=== PATIENT | male | born 1975 ===

== ENCOUNTER 2018-08-03 11:47 | Inpatient (IN) | payer MEDICAID, OTHER ==
[2018-08-03 12:38] LABS: BASO % 0.7 % (0.0-2.0); EOS # 0.1 K/uL (0.0-0.7); EOS % 0.8 % (0.0-4.0); HEMOGLOBIN 13.8 g/dL (12.0-18.0); LYMPH # 1.1 K/uL (1.0-4.3); LYMPH % 15.3 % (20.0-40.0); MEAN CELL VOLUME 98.8 fL (80.0-94.0); MEAN CORPUSCULAR HEMOGLOBIN 32.7 pg (27.0-31.0); MEAN CORPUSCULAR HGB CONC 33.1 g/dL (33.0-37.0); MEAN PLATELET VOLUME 7.5 fL (7.2-11.7); MONO # 0.5 K/uL (0.0-0.8); NEUT # 5.2 K/uL (1.8-7.0); NEUT % 75.2 % (50.0-75.0); NRBC % 0.1 % (0.0-2.0); RBC 4.21 Mil/uL (4.40-5.90); RED CELL DISTRIBUTION WIDTH 14.1 % (11.5-14.5); WHITE BLOOD COUNT 6.9 K/uL (4.8-10.8)
--- NOTE | 2018-08-03 12:44 | C.PDOC ---
History Of Present Illness 42 y/o male, with PMHx of CHF, asthma, COPD, HTN, presents to ED complaining of SOB for the past several months, worsening for the last few weeks. Patient also complains of intermittent palpitations and an episode of chest pressure this morning that was nonradiating. Patient states he took aspirin 325 mg and the pain improved. He also states that he has not been taking his medications for 3 months now because he lost his insurance. He is supposed to take lisinopril 10 mg, carvedilol 25 mg, and lasix 40 mg. Patient denies cough, fever, worsening leg edema, abdominal pain, nausea, vomiting, diarrhea, dysuria. Time Seen by Provider: 08/03/18 12:06 Chief Complaint (Nursing): Palpitations History Per: Patient History/Exam Limitations: no limitations Onset/Duration Of Symptoms: Days Current Symptoms Are (Timing): Still Present Past Medical History Reviewed: Historical Data, Nursing Documentation, Vital Signs Vital Signs: Last Vital Signs Temp 98.3 F 08/03/18 11:57 Pulse 120 H 08/03/18 11:57 Resp 24 08/03/18 11:57 BP 173/106 H 08/03/18 11:57 Pulse Ox 98 08/03/18 11:57 - Medical History PMH: Asthma, CHF, COPD, HTN Family History: States: No Known Family Hx - Social History Hx Alcohol Use: Yes Hx Substance Use: No - Immunization History Hx Tetanus Toxoid Vaccination: No Hx Influenza Vaccination: No Hx Pneumococcal Vaccination: No Review Of Systems Constitutional: Negative for: Fever, Chills Cardiovascular: Positive for: Palpitations, Other (Chest Pressure) Respiratory: Positive for: Shortness of Breath. Negative for: Cough Gastrointestinal: Negative for: Nausea, Vomiting, Abdominal Pain, Diarrhea Genitourinary: Negative for: Dysuria, Hematuria Skin: Negative for: Rash Physical Exam - Physical Exam Appears: Well, Non-toxic, No Acute Distress, Other (morbidly obese, speaking in full sentences) Skin: Warm, Dry, No Rash Head: Normacephalic Eye(s): bilateral: Normal Inspection Oral Mucosa: Moist Neck: Supple Cardiovascular: Rhythm Regular (tachycardic) Respiratory: Normal Breath Sounds, Rales (mild rales at bases bilaterally), No Rhonchi, No Wheezing Gastrointestinal/Abdominal: Normal Exam, Bowel Sounds, Soft, No Tenderness, Other (obese) Extremity: Other (+1 pitting edema B/L LEs) Pulses: Left Dorsalis Pedis: Normal, Right Dorsalis Pedis: Normal Neurological/Psych: Oriented x3 ED Course And Treatment - Laboratory Results Result Diagrams: 08/08/18 06:26 08/08/18 06:26 ECG: Interpreted By Me, Viewed By Me (sinus tachycardia 123bpm, left axis deviation, LVH, no acute ST/T wave changes) ECG Interpretation: Abnormal Rate From EC O2 Sat by Pulse Oximetry: 98 (RA) Pulse Ox Interpretation: Normal - Radiology CXR: Interpreted by Me, Viewed By Me CXR Interpretation: Yes: No Acute Disease. No: Infiltrates Progress Note: Blood work, EKG, chest x-ray ordered and reviewed. Patient given PO Carvedilol 25 mg PO, Lasix 40 mg IV, and Lisinopril 10 mg PO. - Physician Consult Information Physician Contacted: Abad Davalos Outcome Of Conversation: Discussed patient with hospitalist, agrees with obs telemetry for chest pain, r/o ACS, CHF exacerbation. Disposition - Disposition Disposition: HOSPITALIZED Disposition Time: 14:37 Condition: STABLE - Clinical Impression Clinical Impression: CHF exacerbation, Chest pain - Scribe Statement The provider has reviewed the documentation as recorded by the Raegan Rincon Provider Attestation: All medical record entries made by the Raegan were at my direction and personally dictated by me. I have reviewed the chart and agree that the record accurately reflects my personal performance of the history, physical exam, medical decision making, and the department course for this patient. I have also personally directed, reviewed, and agree with the discharge instructions and disposition. Decision To Admit - Pt Status Changed To: Hospital Disposition Of: Observation - . Bed Request Type: Telemetry Admitting Physician: Abad Davalos Patient Diagnosis: Chest pain, CHF exacerbation
[2018-08-03 12:46] LABS: INR 1.1; PROTHROMBIN TIME 12.5 SECONDS (9.7-12.2)
[2018-08-03 13:01] LABS: ALBUMIN 3.9 g/dL (3.5-5.0); ALT/SGPT 52 U/L (21-72); AST/SGOT 68 U/L (17-59); BLOOD UREA NITROGEN 9 mg/dL (9-20); CALCIUM 8.6 mg/dl (8.6-10.4); GFR NON-AFRICAN AMERICAN > 60
[2018-08-03 13:09] LABS: B-TYPE NATRIURETIC PEPTIDE 1660 pg/mL (0-450)
[2018-08-03] MEDS ORDERED: Potassium Chloride 20 mEq ER Tab PO STA (14:10)
[2018-08-03] MEDS ORDERED: Potassium Chloride 20 mEq ER Tab PO ONE (14:28)
--- NOTE | 2018-08-03 15:33 | RAD ---
Date of service: 08/03/2018 PROCEDURE: CHEST RADIOGRAPH, 1 VIEW HISTORY: SOB COMPARISON: None available. FINDINGS: LUNGS: No consolidation PLEURA: No pneumothorax or pleural fluid seen. CARDIOVASCULAR: No aortic atherosclerotic calcification present. Cardiomegaly. Probable top-normal pulmonary vasculature large body habitus noted. OSSEOUS STRUCTURES: Bilateral shoulder arthrosis. VISUALIZED UPPER ABDOMEN: Normal. OTHER FINDINGS: None. IMPRESSION: Cardiomegaly and top-normal pulmonary vasculature.
--- NOTE | 2018-08-03 16:07 | CP.PCM.HP ---
<AmeliaIta - Last Filed: 08/03/18 17:34> History of Present Illness - History of Present Illness History of Present Illness: Ita Cisneros PGY1 H&P for Dr. Carlos CC: Chest pressure and palpitations Patient is a 42yo male with PMH of CHF and asthma presenting to hospital with palpitations, shortness of breath, and chest pressure. He has been having palpitations intermittently every other day for the past 5 months as he has stopped taking his medications since then. He reports chest pressure at 10am this morning with shortness of breath as he was walking to work. He felt the pressure in the center of his chest, rating it 10/10. He took aspirin 325mg at home with no relief. He used his albuterol inhaler at home for the shortness of breath with minimal relief. He denies dizziness, loss of consciousness, chest pain, sweating, nausea, vomiting, diarrhea, numbness, tingling or swelling. He reports sleeping at home with multiple pillows due to comfort. He says he drinks a lot of water. He denies previous intubations, night time asthma attacks, or daily albuterol use. SxH: denies FamH: mom - alive, DM, cardiac disease, dad - alive and well SocH: 30 pack/year smoking history. drinks 1 pint of vodka every other day. denies current recreational drug use Meds: ASA 81mg PO daily, Ventolin 2 puffs INH PRN Allergies: NKDA PMD: none Present on Admission - Present on Admission Any Indicators Present on Admission: No Review of Systems - Constitutional Constitutional: absent: Chills, Fatigue, Fever, Headache - EENT Eyes: absent: Blurred Vision, Change in Vision Nose/Mouth/Throat: absent: Nasal Congestion, Nasal Discharge - Cardiovascular Cardiovascular: Palpitations. absent: Chest Pain, Pain Radiating to Arm/Neck/Jaw, Leg Edema, Lightheadedness Additional comments: chest pressure - Respiratory Respiratory: Dyspnea. absent: Cough - Gastrointestinal Gastrointestinal: absent: Abdominal Pain, Constipation, Diarrhea, Nausea, Vomiting - Genitourinary Genitourinary: absent: Dysuria, Urinary Frequency - Musculoskeletal Musculoskeletal: absent: Muscle Weakness - Integumentary Integumentary: absent: New Lesions, Swelling - Neurological Neurological: absent: Dizziness, Frequent Falls, Syncope, Weakness - Psychiatric Psychiatric: absent: Anxiety, Depression - Endocrine Endocrine: absent: Fatigue Past Patient History - Past Social History Smoking Status: Light Smoker < 10 Cigarettes Daily - CARDIAC Hx Congestive Heart Failure: Yes Hx Hypertension: Yes - PULMONARY Hx Asthma: Yes Hx Chronic Obstructive Pulmonary Disease (COPD): Yes - PSYCHIATRIC Hx Substance Use: No - SURGICAL HISTORY Hx Surgeries: Yes Hx Cardiac Catheterization: Yes - ANESTHESIA Hx Anesthesia: Yes Hx Anesthesia Reactions: No Meds Allergies/Adverse Reactions: Allergies Allergy/AdvReac Type Severity Reaction Status Date / Time No Known Allergies Allergy Verified 08/03/18 12:01 Physical Exam - Constitutional Appears: Well, No Acute Distress - Head Exam Head Exam: ATRAUMATIC, NORMOCEPHALIC - Eye Exam Eye Exam: EOMI, PERRL Pupil Exam: NORMAL ACCOMODATION - ENT Exam ENT Exam: Mucous Membranes Moist - Neck Exam Neck exam: Negative for: Lymphadenopathy, Tenderness Additional comments: JVD +hepatojugular reflex - Respiratory Exam Respiratory Exam: Decreased Breath Sounds, Rales, NORMAL BREATHING PATTERN. absent: Rhonchi, Wheezes - Cardiovascular Exam Cardiovascular Exam: REGULAR RHYTHM, +S1, +S2. absent: Gallop, Rubs, Systolic Murmur - GI/Abdominal Exam GI & Abdominal Exam: Normal Bowel Sounds, Soft. absent: Distended, Firm, Tenderness - Extremities Exam Extremities exam: Positive for: pedal pulses present. Negative for: pedal edema, tenderness - Back Exam Back exam: absent: muscle spasm, rash noted, tenderness - Neurological Exam Neurological exam: Alert, CN II-XII Intact, Oriented x3, Reflexes Normal - Expanded Neurological Exam Expanded Cerebellar Function: Finger to Nose: Normal Sensory exam: Lower Extremity 2 Point Discrimination: Normal Neuro motor strength exam: Left Upper Extremity: 5, Right Upper Extremity: 5, Left Lower Extremity: 5, Right Lower Extremity: 5 DTR: Brachioradialis Left: 2+, Brachioradialis Right: 2+, Patellar Left: 2+, Patellar Right: 2+ - Psychiatric Exam Psychiatric exam: Normal Affect, Normal Mood - Skin Skin Exam: Normal Color Results - Vital Signs Recent Vital Signs: Last Vital Signs Temp 98.4 F 08/03/18 15:16 Pulse 98 H 08/03/18 15:16 Resp 16 08/03/18 15:16 BP 123/89 02/28/19 15:16 Pulse Ox 96 08/03/18 15:16 - Labs Result Diagrams: 08/03/18 12:34 08/03/18 12:34 Labs: Laboratory Results - last 24 hr 08/03/18 08/03/18 08/03/18 12:34 12:34 12:34 WBC 6.9 RBC 4.21 L Hgb 13.8 Hct 41.6 MCV 98.8 H MCH 32.7 H MCHC 33.1 RDW 14.1 Plt Count 291 MPV 7.5 Neut % (Auto) 75.2 H Lymph % (Auto) 15.3 L [place] % (Auto) 8.0 Eos % (Auto) 0.8 Baso % (Auto) 0.7 Neut # (Auto) 5.2 Lymph # (Auto) 1.1 [place] # (Auto) 0.5 Eos # (Auto) 0.1 Baso # (Auto) 0.0 PT 12.5 H INR 1.1 APTT 32 Sodium 135 Potassium 3.2 L Chloride 103 Carbon Dioxide 25 Anion Gap 11 BUN 9 Creatinine 0.8 Est GFR ( Amer) > 60 Est GFR (Non-Af Amer) > 60 POC Glucose (mg/dL) Random Glucose 177 H Calcium 8.6 Total Bilirubin 0.7 AST 68 H ALT 52 Alkaline Phosphatase 61 Total Creatine Kinase 267 H CK-MB (Mass) 2.50 Troponin I < 0.0120 NT-Pro-B Natriuret Pep 1660 H Total Protein 7.7 Albumin 3.9 Globulin 3.8 Albumin/Globulin Ratio 1.0 08/03/18 13:00 WBC RBC Hgb Hct MCV MCH MCHC RDW Plt Count MPV Neut % (Auto) Lymph % (Auto) [place] % (Auto) Eos % (Auto) Baso % (Auto) Neut # (Auto) Lymph # (Auto) [place] # (Auto) Eos # (Auto) Baso # (Auto) PT INR APTT Sodium Potassium Chloride Carbon Dioxide Anion Gap BUN Creatinine Est GFR ( Amer) Est GFR (Non-Af Amer) POC Glucose (mg/dL) 139 H Random Glucose Calcium Total Bilirubin AST ALT Alkaline Phosphatase Total Creatine Kinase CK-MB (Mass) Troponin I NT-Pro-B Natriuret Pep Total Protein Albumin Globulin Albumin/Globulin Ratio Assessment & Plan - Assessment and Plan (Free Text) Assessment: 42 year old male with PMH CHF and asthma presenting with chest pressure and palpitations admitted for r/o ACS. Plan: Acute systolic CHF - EKG: tachycardia, left ventricular hypertrophy - BNP 1600 upon admission - ASA 325mg PO x1 taken - ASA 81mg PO daily - Nitroglycerin SL PRN chest pain - Coreg 25mg PO BID (hold SBP<100 or HR<60) - Lisinopril 20mg PO daily (hold SBP<100) - Lasix 40mg IV BID - Crestor 10mg PO HS - f/u lipid panel, TSH, HbA1c - f/u ROMIS and EKGs 6pm and 10pm - f/u rpt BNP - f/u UDS - ECHO ordered - I/Os - daily weights - calculate ASCVD score when lipids available - Cardiology consulted, Dr. Gupta - f/u recs Chest Pain r/o ACS improved - patient currently asymptomatic - EKG: tachycardia, left ventricular hypertrophy - troponin negative x1 - follow up remaining ROMIs and EKGs 6pm and 10pm - CXR: cardiomegaly - telemetry monitoring - CAMPBLEL score 3 correlating with 8% risk at 14 days of: all-cause mortality, new or recurrent UT, or severe recurrent ischemia requiring urgent revascularization. - ASA 325mg PO x1 taken - ASA 81mg PO daily - Nitroglycerin SL PRN chest pain Hyperglycemia - family hx of DM - f/u HbA1c, lipids - accuchecks ACHS - hypoglycemic protocol Hypokalemia - K+ 3.2 - given KCl 40meq in ED - f/u Mg and replete if necessary - follow up AM CMP HTN - BP 173/106 upon admission - given lasix 40 IV, coreg 25mg, lisinopril 10mg in ED - improved - Coreg 25mg PO BID (hold SBP<100 or HR<60) - Lisinopril 20mg PO daily (hold SBP<100) - Lasix 40mg IV BID - continue to monitor Asthma, mild intermittent - saturating well on room air - patient reports improved symptoms - duonebs 3ml INH q6h PRN shortness of breath Substance Abuse Disorder - history of tobacco use and heavy drinking - Nicotine patch TD daily - CIWA protocol - cessation counseling - f/u UDS, serum etoh PPX: DVT: heparin 5000u sc q8h GI: pepcid 20mg PO BID HHD, 1200ml fluid restriction Patient seen and case reviewed with Dr. Carlos <TerranceMerari V - Last Filed: 08/07/18 14:00> Results - Vital Signs Recent Vital Signs: Last Vital Signs Temp 97.5 F L 08/07/18 08:06 Pulse 91 H 08/07/18 12:21 Resp 20 08/07/18 08:06 BP 119/86 08/07/18 09:10 Pulse Ox 98 08/07/18 08:06 - Labs Result Diagrams: 08/07/18 09:09 08/07/18 09:09 Labs: Laboratory Results - last 24 hr 08/06/18 08/07/18 08/07/18 21:10 09:09 09:09 WBC 7.9 RBC 4.74 Hgb 15.7 Hct 46.8 MCV 98.6 H MCH 33.1 H MCHC 33.5 RDW 14.4 Plt Count 398 MPV 7.5 Neut % (Auto) 55.9 Lymph % (Auto) 27.8 [place] % (Auto) 14.1 H Eos % (Auto) 1.5 Baso % (Auto) 0.7 Neut # (Auto) 4.4 Lymph # (Auto) 2.2 [place] # (Auto) 1.1 H Eos # (Auto) 0.1 Baso # (Auto) 0.1 PT INR Sodium 137 Potassium 3.9 Chloride 100 Carbon Dioxide 29 Anion Gap 12 BUN 15 Creatinine 0.9 Est GFR ( Amer) > 60 Est GFR (Non-Af Amer) > 60 POC Glucose (mg/dL) 152 H Random Glucose 119 H D Calcium 8.9 Phosphorus 4.0 Magnesium 1.8 Total Bilirubin 0.4 AST 59 ALT 50 Alkaline Phosphatase 62 Total Protein 8.5 H Albumin 4.4 Globulin 4.1 H Albumin/Globulin Ratio 1.1 08/07/18 09:09 WBC RBC Hgb Hct MCV MCH MCHC RDW Plt Count MPV Neut % (Auto) Lymph % (Auto) [place] % (Auto) Eos % (Auto) Baso % (Auto) Neut # (Auto) Lymph # (Auto) [place] # (Auto) Eos # (Auto) Baso # (Auto) PT 12.7 H INR 1.2 Sodium Potassium Chloride Carbon Dioxide Anion Gap BUN Creatinine Est GFR ( Amer) Est GFR (Non-Af Amer) POC Glucose (mg/dL) Random Glucose Calcium Phosphorus Magnesium Total Bilirubin AST ALT Alkaline Phosphatase Total Protein Albumin Globulin Albumin/Globulin Ratio Attending/Attestation - Attestation I have personally seen and examined this patient.: Yes I have fully participated in the care of the patient.: Yes I have reviewed all pertinent clinical information: Yes Notes (Text): This is a late computer entry for August 03, 2018. Patient seen, examined, case discussed with medical asst. This is a 42-year-old male with a known history of congestive heart failure. Patient has been without medications for about 6 months secondary to lack of insurance. Patient reports chest pain with co-commitment shortness of breath. As well as dyspnea on exertion and using at least 2 pillows to help with sleep patient does not do a fluid restriction. Discussed case in detail with resident. Patient admitted for acute on chronic systolic heart failure chest pain as well. Cardiology consult Aspirin, beta-aníbal, diuresis, MONO or arm, statin Monitor daily weight Intake output Fluid restriction We have explained patient in great detail in regards to congestive heart failure management. We will continue to monitor on telemetry Echocardiogram
[2018-08-03] MEDS ORDERED: Albuterol-Ipratrop 3 mg / 0.5 (3 ml) UD INH PRN ×2 (16:36→17:26)
[2018-08-03] MEDS ORDERED: Dextrose 50% SYRINGE Inj (50 ml) IV PRN (17:24)
[2018-08-03] MEDS ORDERED: Glucagon Recombinant 1 mg Inj IM PRN (17:38)
[2018-08-03 17:39] LABS: HDL CHOLESTEROL 41 mg/dL (30-70)
[2018-08-03 17:50] LABS: LDL CHOLESTEROL 158 mg/dL (0-129)
[2018-08-03] MEDS: MethylPREDNISolone 40 mg Vial IVP SCH (17:50)
[2018-08-03 17:52] LABS: CK-MB 2.52 ng/mL (0.0-3.38)
[2018-08-03 22:30] LABS: BARBITURATES, UR NEGATIVE (NEGATIVE); BENZODIAZEPINES, UR NEGATIVE (NEGATIVE); OPIATES, UR NEGATIVE (NEGATIVE); PHENCYCLIDINE, UR NEGATIVE (NEGATIVE)
[2018-08-04 00:44] VITALS: RESP 20
[2018-08-04 01:37] LABS: CK-MB 2.13 ng/mL (0.0-3.38)
[2018-08-04 06:25] LABS: BASO % 0.3 % (0.0-2.0); HEMOGLOBIN 15.2 g/dL (12.0-18.0); LYMPH # 0.9 K/uL (1.0-4.3); LYMPH % 10.1 % (20.0-40.0); MEAN CELL VOLUME 98.4 fL (80.0-94.0); MEAN CORPUSCULAR HEMOGLOBIN 33.4 pg (27.0-31.0); MEAN PLATELET VOLUME 7.5 fL (7.2-11.7); MONO # 0.4 K/uL (0.0-0.8); MONO % 4.8 % (0.0-10.0); NEUT # 7.9 K/uL (1.8-7.0); NEUT % 84.8 % (50.0-75.0); RBC 4.56 Mil/uL (4.40-5.90); RED CELL DISTRIBUTION WIDTH 14.4 % (11.5-14.5); WHITE BLOOD COUNT 9.3 K/uL (4.8-10.8)
[2018-08-04 06:42] LABS: B-TYPE NATRIURETIC PEPTIDE 935 pg/mL (0-450)
[2018-08-04 06:45] LABS: ALBUMIN 4.5 g/dL (3.5-5.0); ALT/SGPT 49 U/L (21-72); AST/SGOT 46 U/L (17-59); BLOOD UREA NITROGEN 11 mg/dL (9-20); CALCIUM 9.4 mg/dl (8.6-10.4); GFR NON-AFRICAN AMERICAN > 60
--- NOTE | 2018-08-04 07:19 | CP.PCM.PN ---
<Pancho Galindo - Last Filed: 08/04/18 23:29> Subjective - Date & Time of Evaluation Date of Evaluation: 08/04/18 Time of Evaluation: 08:00 - Subjective Subjective: PGY-[address] Carlos service Patient is seen and examined at bedside. Patient reports improvement of shortness of breath, denies chest pain, or palpitations. Patient is eating well, no nausea, vomiting, diarrhea, constipation or urinary symptoms. Objective - Vital Signs/Intake and Output Vital Signs (last 24 hours): Temp Pulse Resp BP Pulse Ox 97.8 F 80 20 119/82 95 08/03/18 23:15 08/04/18 03:57 08/03/18 23:15 08/03/18 23:15 08/03/18 23:15 - Medications Medications: Current Medications Albuterol/Ipratropium (Duoneb 3 Mg/0.5 Mg (3 Ml) Ud) 3 ml INH Q6H PRN PRN Reason: Shortness of Breath Aspirin (Aspirin Chewable) 81 mg PO DAILY [facility] Carvedilol (Coreg) 25 mg PO BID [facility] Last Admin: 08/03/18 17:49 Dose: 25 mg Dextrose (Dextrose 50% Inj) 0 ml IV STAT PRN; Protocol PRN Reason: Hypoglycemia Protocol Dextrose (Glutose 15) 0 gm PO ONCE PRN; Protocol PRN Reason: Hypoglycemia Protocol Famotidine (Pepcid) 20 mg PO BID [facility] Last Admin: 08/03/18 17:50 Dose: 20 mg Furosemide (Lasix) 40 mg IVP BID [facility] Last Admin: 08/03/18 17:51 Dose: 40 mg Glucagon (Glucagen Diagnostic Kit) 0 mg IM STAT PRN; Protocol PRN Reason: Hypoglycemia Protocol Heparin Sodium (Porcine) (Heparin) 5,000 units SC Q8 [facility] Last Admin: 08/04/18 05:44 Dose: 5,000 units Dextrose (Dextrose 5% In Water 1000 Ml) 1,000 mls @ 0 mls/hr IV .Q0M PRN; Protocol PRN Reason: Hypoglycemia Protocol Lisinopril (Zestril) 20 mg PO DAILY [facility] Methylprednisolone (Solu-Medrol) 40 mg IVP DAILY [facility] Last Admin: 08/03/18 17:50 Dose: 40 mg Nicotine (Nicoderm Cq) 1 patch TD DAILY [facility] Last Admin: 08/03/18 19:09 Dose: 1 patch Nitroglycerin (Nitrostat Sl Tab) 0.4 mg SL Q5M PRN PRN Reason: Pain, severe (8-10) Pneumococcal Polyvalent Vaccine (Pneumovax 23 Vaccine) 0.5 ml IM .ONCE ONE Stop: 08/04/18 14:01 Rosuvastatin Calcium (Crestor) 10 mg PO HS [facility] Last Admin: 08/03/18 21:16 Dose: 10 mg - Labs Labs: 08/04/18 06:13 08/04/18 06:13 PT 12.5 SECONDS (9.7-12.2) H 08/03/18 12:34 INR 1.1 08/03/18 12:34 APTT 32 SECONDS (21-34) 08/03/18 12:34 - Constitutional Appears: Non-toxic, No Acute Distress - Head Exam Head Exam: ATRAUMATIC, NORMAL INSPECTION, NORMOCEPHALIC - Eye Exam Eye Exam: EOMI, Normal appearance - ENT Exam ENT Exam: Normal Exam - Neck Exam Neck Exam: Normal Inspection - Respiratory Exam Respiratory Exam: Clear to Ausculation Bilateral, NORMAL BREATHING PATTERN. absent: Rales, Rhonchi, Wheezes - Cardiovascular Exam Cardiovascular Exam: REGULAR RHYTHM, +S1, +S2 - GI/Abdominal Exam GI & Abdominal Exam: Soft, Normal Bowel Sounds - Extremities Exam Extremities Exam: Full ROM, Normal Inspection. absent: Pedal Edema, Tenderness - Back Exam Back Exam: NORMAL INSPECTION - Neurological Exam Neurological Exam: Alert, Awake, Oriented x3 - Psychiatric Exam Psychiatric exam: Normal Affect, Normal Mood - Skin Skin Exam: Dry, Intact, Normal Color, Warm Assessment and Plan - Assessment and Plan (Free Text) Assessment: 42 year old male with PMH CHF and asthma presenting with chest pressure and palpitations admitted for r/o ACS. Plan: Acute systolic CHF - EKG: tachycardia, left ventricular hypertrophy, t wave abnormalities - BNP 1600 upon admission - ASA 325mg PO x1 taken - ASA 81mg PO daily - Nitroglycerin SL PRN chest pain - Coreg 25mg PO BID (hold SBP<100 or HR<60) - Lisinopril 20mg PO daily (hold SBP<100) - continue duiresis with Lasix 40mg IV BID - Crestor changed from 10mg to 20mg PO HS - adjusted based on ASCVD score of 6.9 which recommends a moderate intensity statin - Lipid panel Triglycerides 158, cholesterol 202, LDL 158, HDL 41 - TSH 4.97 - ENRIKE negative x 3 - BNP from 1660 to 935 - will follow up BNP tomorrow, Mg and Phosp - UDS negative - ECHO ordered - pending official read - I/Os - daily weights - Cardiology consulted, Dr. Gupta - f/u recs Chest Pain r/o ACS improved - patient currently asymptomatic - EKG: tachycardia, left ventricular hypertrophy, t wave abnormalities - CXR: cardiomegaly - ENRIKE negative x 3 - telemetry monitoring - CAMPBELL score 3 correlating with 8% risk at 14 days of: all-cause mortality, new or recurrent MS, or severe recurrent ischemia requiring urgent kavin scularization. - ASA 325mg PO x1 taken - ASA 81mg PO daily - Nitroglycerin SL PRN chest pain Hyperglycemia - family hx of DM - HBA1C 5.8 - continue to monitor glucose levels - accuchecks ACHS - hypoglycemic protocol Hypokalemia, resolved - K+ 4.5 - f/u am labs continue to monitor - replete as needed HTN - BP 173/106 upon admission, normotensive at this time - given lasix 40 IV, coreg 25mg, lisinopril 10mg in ED - Coreg 25mg PO BID (hold SBP<100 or HR<60) - Lisinopril 20mg PO daily (hold SBP<100) - Lasix 40mg IV BID - continue to monitor Asthma, mild intermittent - saturating well on room air - patient reports improved symptoms - duonebs 3ml INH q6h PRN shortness of breath Substance Abuse Disorder - history of tobacco use and heavy drinking - Nicotine patch TD daily - CIWA protocol - cessation counseling - UDS etoh negative PPX: DVT: heparin 5000u sc q8h GI: pepcid 20mg PO BID HHD, 1200ml fluid restriction Plan discussed with Dr. Terrance Galindo, PGY-1 <Merari Carlos V - Last Filed: 08/07/18 14:03> Objective - Vital Signs/Intake and Output Vital Signs (last 24 hours): Temp Pulse Resp BP Pulse Ox 97.5 F L 91 H 20 119/86 98 08/07/18 08:06 08/07/18 12:21 08/07/18 08:06 08/07/18 09:10 08/07/18 08:06 Intake and Output: 08/07/18 08/07/18 06:59 18:59 Intake Total 1000 Balance 1000 - Medications Medications: Current Medications Albuterol/Ipratropium (Duoneb 3 Mg/0.5 Mg (3 Ml) Ud) 3 ml INH Q6H PRN PRN Reason: Shortness of Breath Aspirin (Aspirin Chewable) 81 mg PO DAILY [facility] Last Admin: 08/07/18 09:10 Dose: 81 mg Carvedilol (Coreg) 12.5 mg PO BID [facility] Last Admin: 08/07/18 09:09 Dose: 12.5 mg Dextrose (Dextrose 50% Inj) 0 ml IV STAT PRN; Protocol PRN Reason: Hypoglycemia Protocol Dextrose (Glutose 15) 0 gm PO ONCE PRN; Protocol PRN Reason: Hypoglycemia Protocol Enoxaparin Sodium (Lovenox) 100 mg SC Q12 [facility] Last Admin: 08/07/18 09:09 Dose: 100 mg Famotidine (Pepcid) 20 mg PO BID [facility] Last Admin: 08/07/18 09:09 Dose: 20 mg Furosemide (Lasix) 40 mg IVP BID [facility] Last Admin: 08/07/18 09:10 Dose: 40 mg Glucagon (Glucagen Diagnostic Kit) 0 mg IM STAT PRN; Protocol PRN Reason: Hypoglycemia Protocol Dextrose (Dextrose 5% In Water 1000 Ml) 1,000 mls @ 0 mls/hr IV .Q0M PRN; Protocol PRN Reason: Hypoglycemia Protocol Losartan Potassium (Cozaar) 50 mg PO DAILY [facility] Last Admin: 08/07/18 09:10 Dose: 50 mg Nicotine (Nicoderm Cq) 1 patch TD DAILY [facility] Last Admin: 08/07/18 09:09 Dose: 1 patch Nitroglycerin (Nitrostat Sl Tab) 0.4 mg SL Q5M PRN PRN Reason: Pain, severe (8-10) Rosuvastatin Calcium (Crestor) 20 mg PO HS [facility] Last Admin: 08/06/18 22:07 Dose: 20 mg Warfarin Sodium (Coumadin) 5 mg PO 1800 ONE Stop: 08/07/18 18:01 - Labs Labs: 08/07/18 09:09 08/07/18 09:09 PT 12.7 SECONDS (9.7-12.2) H 08/07/18 09:09 INR 1.2 08/07/18 09:09 APTT 32 SECONDS (21-34) 08/03/18 12:34 Attending/Attestation - Attestation I have personally seen and examined this patient.: Yes I have fully participated in the care of the patient.: Yes I have reviewed all pertinent clinical information, including history, physical exam and plan: Yes Notes (Text): This is a late computer entry for more August 04, 2018. Patient seen, examined, case discussed with medical doctor md. Patient reports shortness of breath is improving while on diuresis. Patient is complete echocardiogram Patient was seen by cardiology. Will continue management in regards to patient's clinical symptomatology secondary to systolic CHF.
[2018-08-04] MEDS: MethylPREDNISolone 40 mg Vial IVP SCH (09:18)
[2018-08-04] MEDS ORDERED: Enoxaparin 40 mg Syringe SC SCH (10:00)
[2018-08-04] MEDS ORDERED: Influenza Vaccine 60 mcg/0.5 mL SYR (4YR UP) IM ONE (13:10)
[2018-08-04] MEDS ORDERED: Pneumococcal 23-Valent Vaccine IM ONE (14:00)
[2018-08-04] MEDS: Enoxaparin 100 mg Syringe SC SCH (21:25)
--- NOTE | 2018-08-05 03:10 | CON ---
DATE: 08/04/2018 CARDIOLOGY CONSULTATION REASON FOR CONSULTATION: Shortness of breath. HISTORY OF PRESENTING ILLNESS: The patient is a 42-year-old, morbidly obese male, who has a history of cardiomyopathy. The patient is followed by swine nutritionist by name of at [facility]. The patient recently underwent a cardiac catheterization at [facility], and there were no blockages, required no intervention, and no ICD was recommended. 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 SOCIAL HISTORY: The patient is a smoker. MEDICATIONS: Aspirin 81 mg once a day, Coreg 25 mg once a day, Crestor 10 mg once a day, heparin 5000 units every 8 hours, Lasix 20 mg intravenously twice a day, Nicoderm patch, Zestril 20 mg once a day, Solu-Medrol 40 mg intravenously daily. PHYSICAL EXAMINATION: GENERAL: The patient is a middle-aged male who does not appear to be in acute distress. VITAL SIGNS: Blood pressure 120/90, heart rate 63, temperature 97.4, respirations 20. HEENT: Normocephalic. CHEST: Clear. HEART: S1 and S2, regular and distant. ABDOMEN: Soft. EXTREMITIES: Trace leg edema. LABORATORY DATA: Chest x-ray revealed cardiomegaly, prominent bronchovascular markings. EKG revealed sinus rhythm at a rate of 90, left atrial enlargement, LVH, consider anterolateral ischemia. Urine drug screen is negative. SMA-7: Within normal limits except glucose of 148 and creatinine 0.7. Lipid profile is abnormal. Triglycerides 158, total cholesterol 202, LDL cholesterol is 158. All are elevated. TSH level is elevated to 4.97. Hemoglobin, hematocrit, white count, and platelet count are within normal limits. INR and PTT are within normal limits. Preliminary echocardiogram report revealed ejection fraction estimated at about 30% with [id number] pulmonary hypertension, and the right ventricle is also dilated and hypokinetic. No significant mitral insufficiency. Apical thrombus cannot be completely excluded. ASSESSMENT: 1. Exacerbation of congestive heart failure. 2. Morbid obesity. 3. Questionable apical thrombus. 4. Hyperlipidemia. RECOMMENDATIONS: Continue aspirin 81 mg once a day, Coreg 25 mg once a day, Crestor 10 mg once a day, Lasix 20 mg intravenously twice a day, Zestril 20 mg once a day. Discontinue subcutaneous heparin and start subcutaneous Lovenox. Start Crestor at 20 mg once a day. Boubacar Gupta MD
[2018-08-05 07:38] LABS: BASO # 0.1 K/uL (0.0-0.2); BASO % 0.7 % (0.0-2.0); EOS # 0.1 K/uL (0.0-0.7); EOS % 0.6 % (0.0-4.0); HEMOGLOBIN 14.8 g/dL (12.0-18.0); LYMPH # 3.2 K/uL (1.0-4.3); LYMPH % 26.4 % (20.0-40.0); MEAN CELL VOLUME 99.3 fL (80.0-94.0); MEAN CORPUSCULAR HEMOGLOBIN 33.3 pg (27.0-31.0); MEAN CORPUSCULAR HGB CONC 33.5 g/dL (33.0-37.0); MEAN PLATELET VOLUME 7.8 fL (7.2-11.7); MONO # 1.2 K/uL (0.0-0.8); NEUT # 7.6 K/uL (1.8-7.0); NEUT % 62.3 % (50.0-75.0); RBC 4.45 Mil/uL (4.40-5.90); RED CELL DISTRIBUTION WIDTH 14.6 % (11.5-14.5); WHITE BLOOD COUNT 12.2 K/uL (4.8-10.8)
[2018-08-05 08:04] LABS: ALBUMIN 4.1 g/dL (3.5-5.0); ALT/SGPT 47 U/L (21-72); AST/SGOT 51 U/L (17-59); BLOOD UREA NITROGEN 17 mg/dL (9-20); CALCIUM 8.9 mg/dl (8.6-10.4); GFR NON-AFRICAN AMERICAN > 60
--- NOTE | 2018-08-05 09:42 | RAD ---
Date of service: 08/05/2018 HISTORY: pleural effusion COMPARISON: No prior. FINDINGS: LUNGS: Mild bibasilar atelectasis. Slight increased central pulmonary vasculature PLEURA: Tiny bilateral effusions not completely excluded. No apparent pneumothorax. CARDIOVASCULAR: No aortic atherosclerotic calcification present. Cardiomegaly. OSSEOUS STRUCTURES: No significant abnormalities. VISUALIZED UPPER ABDOMEN: Normal. OTHER FINDINGS: None. IMPRESSION: Mild bibasilar atelectasis tiny bibasilar effusions not excluded. Slight increased central pulmonary vasculature
--- NOTE | 2018-08-05 10:26 | CP.PCM.PN ---
<Paula Abraham - Last Filed: 08/05/18 12:32> Subjective - Date & Time of Evaluation Date of Evaluation: 08/05/18 Time of Evaluation: 08:00 - Subjective Subjective: Medicine Progress Note: Patient was seen and examined at bedside. Patient states he feels better, but is short of breath with walking. Patient denies chest pain, palpitations, nausea, vomiting, diarrhea or constipation. Objective - Vital Signs/Intake and Output Vital Signs (last 24 hours): Temp Pulse Resp BP Pulse Ox 97.4 F L 89 20 118/83 97 08/05/18 07:00 08/05/18 08:53 08/05/18 07:00 08/05/18 09:44 08/05/18 07:00 Intake and Output: 08/05/18 08/05/18 06:59 18:59 Intake Total 500 Output Total 2600 Balance -2100 - Medications Medications: Current Medications Albuterol/Ipratropium (Duoneb 3 Mg/0.5 Mg (3 Ml) Ud) 3 ml INH Q6H PRN PRN Reason: Shortness of Breath Aspirin (Aspirin Chewable) 81 mg PO DAILY [facility] Last Admin: 08/05/18 09:44 Dose: 81 mg Carvedilol (Coreg) 25 mg PO BID [facility] Last Admin: 08/05/18 09:44 Dose: 25 mg Dextrose (Dextrose 50% Inj) 0 ml IV STAT PRN; Protocol PRN Reason: Hypoglycemia Protocol Dextrose (Glutose 15) 0 gm PO ONCE PRN; Protocol PRN Reason: Hypoglycemia Protocol Enoxaparin Sodium (Lovenox) 100 mg SC Q12 [facility] Last Admin: 08/04/18 21:25 Dose: 100 mg Famotidine (Pepcid) 20 mg PO BID [facility] Last Admin: 08/05/18 09:44 Dose: 20 mg Furosemide (Lasix) 40 mg IVP BID [facility] Last Admin: 08/05/18 09:44 Dose: 40 mg Glucagon (Glucagen Diagnostic Kit) 0 mg IM STAT PRN; Protocol PRN Reason: Hypoglycemia Protocol Dextrose (Dextrose 5% In Water 1000 Ml) 1,000 mls @ 0 mls/hr IV .Q0M PRN; Protocol PRN Reason: Hypoglycemia Protocol Lisinopril (Zestril) 20 mg PO DAILY [facility] Last Admin: 08/04/18 09:20 Dose: 20 mg Nicotine (Nicoderm Cq) 1 patch TD DAILY [facility] Last Admin: 08/05/18 09:44 Dose: 1 patch Nitroglycerin (Nitrostat Sl Tab) 0.4 mg SL Q5M PRN PRN Reason: Pain, severe (8-10) Rosuvastatin Calcium (Crestor) 20 mg PO HS [facility] Last Admin: 08/04/18 21:25 Dose: 20 mg - Labs Labs: 08/05/18 07:27 08/05/18 07:27 PT 12.5 SECONDS (9.7-12.2) H 08/03/18 12:34 INR 1.1 08/03/18 12:34 APTT 32 SECONDS (21-34) 08/03/18 12:34 - Constitutional Appears: No Acute Distress - Head Exam Head Exam: ATRAUMATIC, NORMAL INSPECTION - Eye Exam Eye Exam: EOMI, Normal appearance - ENT Exam ENT Exam: Mucous Membranes Moist - Respiratory Exam Respiratory Exam: Clear to Ausculation Bilateral, NORMAL BREATHING PATTERN - Cardiovascular Exam Cardiovascular Exam: REGULAR RHYTHM, +S1, +S2 - GI/Abdominal Exam GI & Abdominal Exam: Soft, Normal Bowel Sounds. absent: Tenderness - Extremities Exam Extremities Exam: Pedal Edema (+1) - Neurological Exam Neurological Exam: Alert, Awake, Oriented x3 - Psychiatric Exam Psychiatric exam: Normal Affect - Skin Skin Exam: Normal Color Assessment and Plan - Assessment and Plan (Free Text) Assessment: 42 year old male with past medical history of CHF and asthma presented to the ER with chest pressure and palpitations. Acute systolic CHF - Cardiology consulted: Dr. Gupta --> help appreciated - ECHO EF 30% Recommendation of a life vest - Possible apical thrombus --> patient was started on Lovenox 100mg q12h - EKG: tachycardia, left ventricular hypertrophy, t wave abnormalities - BNP 1600 upon admission --> 357 - TSH 4.97; UDS negative - ENRIKE negative x 3 - Medications: * ASA 325mg PO x1 taken given on admission * ASA 81mg PO daily * Nitroglycerin SL PRN chest pain * Coreg 25mg PO BID (hold SBP<100 or HR<60) * Lisinopril 20mg PO daily (hold SBP<100) * Lasix 40mg IV BID * Crestor changed from 10mg to 20mg PO HS - adjusted based on ASCVD score of 6.9 which recommends a moderate intensity statin - Lipid panel Triglycerides 158, cholesterol 202, LDL 158, HDL 41 - ECHO ordered - pending official read - Chest Xray: (08/05/18): Mild bibasilar atelectasis tiny bibasilar effusions not excluded. Slight increased central pulmonary vasculature - I/Os; monitor daily weights Chest Pain - resolved - patient currently asymptomatic - please see above - CAMPBELL score 3 correlating with 8% risk at 14 days of: all-cause mortality, new or recurrent [place], or severe recurrent ischemia requiring urgent revasc ularization. Impaired Glucose Tolerance - HBA1C 5.8 - Heart Healthy/Moderate Carbohydrate Diet - accuchecks ACHS - hypoglycemic protocol History of HTN - Medications: * given lasix 40 IV, coreg 25mg, lisinopril 10mg in ED * Coreg 25mg PO BID (hold SBP<100 or HR<60) * Lisinopril 20mg PO daily (hold SBP<100) * Lasix 40mg IV BID - continue to monitor History of Asthma, mild intermittent - saturating well on room air - duonebs 3ml INH q6h PRN shortness of breath Hypokalemia- resolved - K+ 4.5 - Continue to monitor - replete as needed Substance Abuse Disorder - history of tobacco use and heavy drinking - Nicotine patch TD daily - [facility] protocol - cessation counseling - UDS etoh negative on admission Prophylaxis DVT: Lovenox 100mg q12h GI: pepcid 20mg PO BID HHD, 1200ml fluid restriction Physical Therapy eval and Treat Case management will inquire about life vest coverage Plan discussed with Dr. Terrance Abraham PGY-2 <Merari Carlos V - Last Filed: 08/07/18 14:05> Objective - Vital Signs/Intake and Output Vital Signs (last 24 hours): Temp Pulse Resp BP Pulse Ox 97.5 F L 91 H 20 119/86 98 08/07/18 08:06 08/07/18 12:21 08/07/18 08:06 08/07/18 09:10 08/07/18 08:06 Intake and Output: 08/07/18 08/07/18 06:59 18:59 Intake Total 1000 Balance 1000 - Medications Medications: Current Medications Albuterol/Ipratropium (Duoneb 3 Mg/0.5 Mg (3 Ml) Ud) 3 ml INH Q6H PRN PRN Reason: Shortness of Breath Aspirin (Aspirin Chewable) 81 mg PO DAILY [facility] Last Admin: 08/07/18 09:10 Dose: 81 mg Carvedilol (Coreg) 12.5 mg PO BID [facility] Last Admin: 08/07/18 09:09 Dose: 12.5 mg Dextrose (Dextrose 50% Inj) 0 ml IV STAT PRN; Protocol PRN Reason: Hypoglycemia Protocol Dextrose (Glutose 15) 0 gm PO ONCE PRN; Protocol PRN Reason: Hypoglycemia Protocol Enoxaparin Sodium (Lovenox) 100 mg SC Q12 [facility] Last Admin: 08/07/18 09:09 Dose: 100 mg Famotidine (Pepcid) 20 mg PO BID [facility] Last Admin: 08/07/18 09:09 Dose: 20 mg Furosemide (Lasix) 40 mg IVP BID [facility] Last Admin: 08/07/18 09:10 Dose: 40 mg Glucagon (Glucagen Diagnostic Kit) 0 mg IM STAT PRN; Protocol PRN Reason: Hypoglycemia Protocol Dextrose (Dextrose 5% In Water 1000 Ml) 1,000 mls @ 0 mls/hr IV .Q0M PRN; Protocol PRN Reason: Hypoglycemia Protocol Losartan Potassium (Cozaar) 50 mg PO DAILY [facility] Last Admin: 08/07/18 09:10 Dose: 50 mg Nicotine (Nicoderm Cq) 1 patch TD DAILY [facility] Last Admin: 08/07/18 09:09 Dose: 1 patch Nitroglycerin (Nitrostat Sl Tab) 0.4 mg SL Q5M PRN PRN Reason: Pain, severe (8-10) Rosuvastatin Calcium (Crestor) 20 mg PO HS [facility] Last Admin: 08/06/18 22:07 Dose: 20 mg Warfarin Sodium (Coumadin) 5 mg PO 1800 ONE Stop: 08/07/18 18:01 - Labs Labs: 08/07/18 09:09 08/07/18 09:09 PT 12.7 SECONDS (9.7-12.2) H 08/07/18 09:09 INR 1.2 08/07/18 09:09 APTT 32 SECONDS (21-34) 08/03/18 12:34 Attending/Attestation - Attestation I have personally seen and examined this patient.: Yes I have fully participated in the care of the patient.: Yes I have reviewed all pertinent clinical information, including history, physical exam and plan: Yes Notes (Text): This is a late computer entry for August 05, 2018. Patient seen, examined case discussed with medical service representative Patient to continue diuresis aspirin, beta-aníbal, MONO inhibitor, statin Echocardiogram was reviewed by cardiology. Patient started on therapeutic Lovenox for possible apical thrombus. I discussed with patient in great detail in regard to the fact that patient's EF has changed on echocardiogram patient is aware that he needs to comply with medical management to help improve the quality of his heart. I also did indicate to the patient that he is on a therapeutic blood thinner to help dissolve of potential clot which could lead to stroke.
[2018-08-05] MEDS: Enoxaparin 100 mg Syringe SC SCH ×2 (12:21→22:04)
--- NOTE | 2018-08-05 14:03 | PN ---
DATE: 08/05/2018 SUBJECTIVE: The patient is comfortable. He denies any chest pain or shortness of breath. PHYSICAL EXAMINATION: VITAL SIGNS: Blood pressure 119/85, heart rate 91, temperature 97.4, respirations 20. HEENT: Normocephalic. CHEST: Diminished breath sounds over the bases. HEART: S1 and S2 regular. EXTREMITIES: Trace leg edema. LABORATORY DATA: SMA-7 is within normal limits except for glucose of 115. Today's ProBNP is 357. Today's hemoglobin and hematocrit within normal limits. White count 12.2, platelet count 401,000. ASSESSMENT: 1. Cardiomyopathy, presumably nonischemic. 2. Questionable left ventricular apical thrombus. 3. Hyperlipidemia. 4. Obesity. RECOMMENDATIONS: Case was discussed with the medical team. I requested to obtain the most recent cardiac catheterization performed last year at [facility] to confirm the nonischemic etiology of the patient's cardiomyopathy. Continue current IV Lasix 40 mg twice a day, subcutaneous Lovenox 100 mg twice a day, Zestril 20 mg once a day. I recommended Social Service to help the patient with his outpatient medication. The patient will need a LifeVest; however, it is not clear if the [employer] can provide that to the patient without medical coverage based on my past experience. Boubacar Gupta MD
--- NOTE | 2018-08-05 19:32 | CP.PCM.PN ---
<Ruy Mahmood - Last Filed: 08/06/18 04:26> Subjective - Date & Time of Evaluation Date of Evaluation: 08/06/18 Time of Evaluation: 04:26 - Subjective Subjective: PGY1 medicine progress note for Dr. Carlos Pt seen and examined at bedside. Pt is resting comfortably and watching TV. Pt denies fever, chills, chest pain, sob, dyspnea on exertion, leg pain or swelling, abdominal pain, n/v/d, dizziness, headache. I discussed with pt the need for a life vest and its function, pt understands. Objective - Vital Signs/Intake and Output Vital Signs (last 24 hours): Temp Pulse Resp BP Pulse Ox 97.4 F L 84 20 116/78 97 08/05/18 07:00 08/05/18 16:09 08/05/18 07:00 08/05/18 17:59 08/05/18 07:00 - Medications Medications: Current Medications Albuterol/Ipratropium (Duoneb 3 Mg/0.5 Mg (3 Ml) Ud) 3 ml INH Q6H PRN PRN Reason: Shortness of Breath Aspirin (Aspirin Chewable) 81 mg PO DAILY [facility] Last Admin: 08/05/18 09:44 Dose: 81 mg Carvedilol (Coreg) 25 mg PO BID [facility] Last Admin: 08/05/18 17:59 Dose: 25 mg Dextrose (Dextrose 50% Inj) 0 ml IV STAT PRN; Protocol PRN Reason: Hypoglycemia Protocol Dextrose (Glutose 15) 0 gm PO ONCE PRN; Protocol PRN Reason: Hypoglycemia Protocol Enoxaparin Sodium (Lovenox) 100 mg SC Q12 [facility] Last Admin: 08/05/18 12:21 Dose: 100 mg Famotidine (Pepcid) 20 mg PO BID [facility] Last Admin: 08/05/18 18:00 Dose: 20 mg Furosemide (Lasix) 40 mg IVP BID [facility] Last Admin: 08/05/18 17:59 Dose: 40 mg Glucagon (Glucagen Diagnostic Kit) 0 mg IM STAT PRN; Protocol PRN Reason: Hypoglycemia Protocol Dextrose (Dextrose 5% In Water 1000 Ml) 1,000 mls @ 0 mls/hr IV .Q0M PRN; Protocol PRN Reason: Hypoglycemia Protocol Lisinopril (Zestril) 20 mg PO DAILY [facility] Last Admin: 08/05/18 10:54 Dose: 20 mg Nicotine (Nicoderm Cq) 1 patch TD DAILY [facility] Last Admin: 08/05/18 09:44 Dose: 1 patch Nitroglycerin (Nitrostat Sl Tab) 0.4 mg SL Q5M PRN PRN Reason: Pain, severe (8-10) Rosuvastatin Calcium (Crestor) 20 mg PO HS [facility] Last Admin: 08/04/18 21:25 Dose: 20 mg - Labs Labs: 08/05/18 07:27 08/05/18 07:27 PT 12.5 SECONDS (9.7-12.2) H 08/03/18 12:34 INR 1.1 08/03/18 12:34 APTT 32 SECONDS (21-34) 08/03/18 12:34 - Constitutional Appears: Non-toxic, No Acute Distress - Head Exam Head Exam: ATRAUMATIC, NORMAL INSPECTION - Eye Exam Eye Exam: EOMI, Normal appearance - ENT Exam ENT Exam: Mucous Membranes Moist - Respiratory Exam Respiratory Exam: Clear to Ausculation Bilateral. absent: Decreased Breath Sounds, Rales, Rhonchi, Wheezes, Stridor - Cardiovascular Exam Cardiovascular Exam: REGULAR RHYTHM, +S1, +S2. absent: Tachycardia - GI/Abdominal Exam GI & Abdominal Exam: Soft (obese abdomen), Normal Bowel Sounds. absent: Firm, Guarding, Rigid, Tenderness - Extremities Exam Extremities Exam: Normal Capillary Refill, Pedal Edema (trace pitting edema in bilateral lower extremities). absent: Calf Tenderness, Tenderness - Neurological Exam Neurological Exam: Alert, Awake - Psychiatric Exam Psychiatric exam: Normal Affect, Normal Mood - Skin Skin Exam: Dry, Normal Color, Warm Assessment and Plan - Assessment and Plan (Free Text) Assessment: 42 year old male with past medical history of CHF and asthma presented to the ER with chest pressure and palpitations. Acute systolic CHF - Cardiology consulted: Dr. Gupta --> help appreciated - ECHO EF 30% Recommendation of a life vest - Possible apical thrombus Lovenox 100mg SC q12h - EKG: tachycardia, left ventricular hypertrophy, t wave abnormalities - BNP 1600 upon admission --> 357 - TSH 4.97; UDS negative - ENRIKE negative x 3 - Medications: * ASA 325mg PO x1 taken given on admission * ASA 81mg PO daily * Nitroglycerin SL PRN chest pain * Coreg 25mg PO BID (hold SBP<100 or HR<60) * Lisinopril 20mg PO daily (hold SBP<100) * Lasix 40mg IV BID * Crestor changed from 10mg to 20mg PO HS - adjusted based on ASCVD score of 6.9 which recommends a moderate intensity statin - Lipid panel Triglycerides 158, cholesterol 202, LDL 158, HDL 41 - ECHO ordered - pending official read - Chest Xray: (08/05/18): Mild bibasilar atelectasis tiny bibasilar effusions not excluded. Slight increased central pulmonary vasculature - I/Os; monitor daily weights Chest Pain - resolved - patient currently asymptomatic - please see above - CAMPBELL score 3 correlating with 8% risk at 14 days of: all-cause mortality, new or recurrent [place], or severe recurrent ischemia requiring urgent revascularization. Leukocytosis 12.2, likely reactive Pt afebrile, not tachycardic Will continue to monitor Impaired Glucose Tolerance - HBA1C 5.8 - Heart Healthy/Moderate Carbohydrate Diet - accuchecks ACHS - hypoglycemic protocol History of HTN - Medications: * given lasix 40 IV, coreg 25mg, lisinopril 10mg in ED * Coreg 25mg PO BID (hold SBP<100 or HR<60) * Lisinopril 20mg PO daily (hold SBP<100) * Lasix 40mg IV BID - continue to monitor History of Asthma, mild intermittent - saturating well on room air - duonebs 3ml INH q6h PRN shortness of breath Hypokalemia- resolved - Continue to monitor - replete as needed Substance Abuse Disorder - history of tobacco use and heavy drinking - Nicotine patch TD daily - [facility] protocol - cessation counseling - UDS etoh negative on admission Prophylaxis DVT: Lovenox 100mg q12h GI: pepcid 20mg PO BID HHD, 1200ml fluid restriction Physical Therapy eval and Treat F/u with SW for lifevest <Merari Carlos V - Last Filed: 08/07/18 14:06> Objective - Vital Signs/Intake and Output Vital Signs (last 24 hours): Temp Pulse Resp BP Pulse Ox 97.5 F L 91 H 20 119/86 98 08/07/18 08:06 08/07/18 12:21 08/07/18 08:06 08/07/18 09:10 08/07/18 08:06 Intake and Output: 08/07/18 08/07/18 06:59 18:59 Intake Total 1000 Balance 1000 - Medications Medications: Current Medications Albuterol/Ipratropium (Duoneb 3 Mg/0.5 Mg (3 Ml) Ud) 3 ml INH Q6H PRN PRN Reason: Shortness of Breath Aspirin (Aspirin Chewable) 81 mg PO DAILY [facility] Last Admin: 08/07/18 09:10 Dose: 81 mg Carvedilol (Coreg) 12.5 mg PO BID [facility] Last Admin: 08/07/18 09:09 Dose: 12.5 mg Dextrose (Dextrose 50% Inj) 0 ml IV STAT PRN; Protocol PRN Reason: Hypoglycemia Protocol Dextrose (Glutose 15) 0 gm PO ONCE PRN; Protocol PRN Reason: Hypoglycemia Protocol Enoxaparin Sodium (Lovenox) 100 mg SC Q12 [facility] Last Admin: 08/07/18 09:09 Dose: 100 mg Famotidine (Pepcid) 20 mg PO BID [facility] Last Admin: 08/07/18 09:09 Dose: 20 mg Furosemide (Lasix) 40 mg IVP BID [facility] Last Admin: 08/07/18 09:10 Dose: 40 mg Glucagon (Glucagen Diagnostic Kit) 0 mg IM STAT PRN; Protocol PRN Reason: Hypoglycemia Protocol Dextrose (Dextrose 5% In Water 1000 Ml) 1,000 mls @ 0 mls/hr IV .Q0M PRN; Protocol PRN Reason: Hypoglycemia Protocol Losartan Potassium (Cozaar) 50 mg PO DAILY [facility] Last Admin: 08/07/18 09:10 Dose: 50 mg Nicotine (Nicoderm Cq) 1 patch TD DAILY [facility] Last Admin: 08/07/18 09:09 Dose: 1 patch Nitroglycerin (Nitrostat Sl Tab) 0.4 mg SL Q5M PRN PRN Reason: Pain, severe (8-10) Rosuvastatin Calcium (Crestor) 20 mg PO HS [facility] Last Admin: 08/06/18 22:07 Dose: 20 mg Warfarin Sodium (Coumadin) 5 mg PO 1800 ONE Stop: 08/07/18 18:01 - Labs Labs: 08/07/18 09:09 08/07/18 09:09 PT 12.7 SECONDS (9.7-12.2) H 08/07/18 09:09 INR 1.2 08/07/18 09:09 APTT 32 SECONDS (21-34) 08/03/18 12:34 Attending/Attestation - Attestation I have personally seen and examined this patient.: Yes I have fully participated in the care of the patient.: Yes I have reviewed all pertinent clinical information, including history, physical exam and plan: Yes Notes (Text): Please note this note is intended from August 06, 2018. There is a duplicate note. Please disregard this note and please use the properly dated note from August 06, 2018.
--- NOTE | 2018-08-06 04:34 | CP.PCM.PN ---
<Ruy Mahmood - Last Filed: 08/06/18 04:33> Subjective - Date & Time of Evaluation Date of Evaluation: 08/06/18 Time of Evaluation: 04:34 - Subjective Subjective: PGY1 medicine progress note for Dr. Carlos Pt seen and examined at bedside. Pt is resting comfortably and watching TV. Pt denies fever, chills, chest pain, sob, dyspnea on exertion, leg pain or swelling, abdominal pain, n/v/d, dizziness, headache. I discussed with pt the need for a life vest and its function, pt understands. Objective - Vital Signs/Intake and Output Vital Signs (last 24 hours): Temp Pulse Resp BP Pulse Ox 98 F 88 20 99/72 L 97 08/05/18 23:10 08/05/18 23:42 08/05/18 23:10 08/05/18 23:10 08/05/18 23:10 Intake and Output: 08/05/18 08/06/18 18:59 06:59 Intake Total 1000 500 Output Total 800 1000 Balance 200 -500 - Medications Medications: Current Medications Albuterol/Ipratropium (Duoneb 3 Mg/0.5 Mg (3 Ml) Ud) 3 ml INH Q6H PRN PRN Reason: Shortness of Breath Aspirin (Aspirin Chewable) 81 mg PO DAILY [facility] Last Admin: 08/05/18 09:44 Dose: 81 mg Carvedilol (Coreg) 25 mg PO BID [facility] Last Admin: 08/05/18 17:59 Dose: 25 mg Dextrose (Dextrose 50% Inj) 0 ml IV STAT PRN; Protocol PRN Reason: Hypoglycemia Protocol Dextrose (Glutose 15) 0 gm PO ONCE PRN; Protocol PRN Reason: Hypoglycemia Protocol Enoxaparin Sodium (Lovenox) 100 mg SC Q12 [facility] Last Admin: 08/05/18 22:04 Dose: 100 mg Famotidine (Pepcid) 20 mg PO BID [facility] Last Admin: 08/05/18 18:00 Dose: 20 mg Furosemide (Lasix) 40 mg IVP BID [facility] Last Admin: 08/05/18 17:59 Dose: 40 mg Glucagon (Glucagen Diagnostic Kit) 0 mg IM STAT PRN; Protocol PRN Reason: Hypoglycemia Protocol Dextrose (Dextrose 5% In Water 1000 Ml) 1,000 mls @ 0 mls/hr IV .Q0M PRN; Protocol PRN Reason: Hypoglycemia Protocol Lisinopril (Zestril) 20 mg PO DAILY [facility] Last Admin: 08/05/18 10:54 Dose: 20 mg Nicotine (Nicoderm Cq) 1 patch TD DAILY [facility] Last Admin: 08/05/18 09:44 Dose: 1 patch Nitroglycerin (Nitrostat Sl Tab) 0.4 mg SL Q5M PRN PRN Reason: Pain, severe (8-10) Rosuvastatin Calcium (Crestor) 20 mg PO HS [facility] Last Admin: 08/05/18 22:04 Dose: 20 mg - Labs Labs: 08/05/18 07:27 08/05/18 07:27 PT 12.5 SECONDS (9.7-12.2) H 08/03/18 12:34 INR 1.1 08/03/18 12:34 APTT 32 SECONDS (21-34) 08/03/18 12:34 - Additional Findings Additional findings: - Constitutional Appears: Non-toxic, No Acute Distress - Head Exam Head Exam: ATRAUMATIC, NORMAL INSPECTION - Eye Exam Eye Exam: EOMI, Normal appearance - ENT Exam ENT Exam: Mucous Membranes Moist - Respiratory Exam Respiratory Exam: Clear to Ausculation Bilateral. absent: Decreased Breath Sounds, Rales, Rhonchi, Wheezes, Stridor - Cardiovascular Exam Cardiovascular Exam: REGULAR RHYTHM, +S1, +S2. absent: Tachycardia - GI/Abdominal Exam GI & Abdominal Exam: Soft (obese abdomen), Normal Bowel Sounds. absent: Firm, Guarding, Rigid, Tenderness - Extremities Exam Extremities Exam: Normal Capillary Refill, Pedal Edema (trace pitting edema in bilateral lower extremities). absent: Calf Tenderness, Tenderness - Neurological Exam Neurological Exam: Alert, Awake - Psychiatric Exam Psychiatric exam: Normal Affect, Normal Mood - Skin Skin Exam: Dry, Normal Color, Warm Assessment and Plan - Assessment and Plan (Free Text) Assessment: 42 year old male with past medical history of CHF and asthma presented to the ER with chest pressure and palpitations. Acute systolic CHF - Cardiology consulted: Dr. Gupta --> help appreciated - ECHO EF 30% Recommendation of a life vest - Possible apical thrombus Lovenox 100mg SC q12h - EKG: tachycardia, left ventricular hypertrophy, t wave abnormalities - BNP 1600 upon admission --> 357 - TSH 4.97; UDS negative - ENRIKE negative x 3 - Medications: * ASA 325mg PO x1 taken given on admission * ASA 81mg PO daily * Nitroglycerin SL PRN chest pain * Coreg 25mg PO BID (hold SBP<100 or HR<60) * Lisinopril 20mg PO daily (hold SBP<100) * Lasix 40mg IV BID * Crestor changed from 10mg to 20mg PO HS - adjusted based on ASCVD score of 6.9 which recommends a moderate intensity statin - Lipid panel Triglycerides 158, cholesterol 202, LDL 158, HDL 41 - ECHO ordered - pending official read - Chest Xray: (08/05/18): Mild bibasilar atelectasis tiny bibasilar effusions not excluded. Slight increased central pulmonary vasculature - I/Os; monitor daily weights Chest Pain - resolved - patient currently asymptomatic - please see above - CAMPBELL score 3 correlating with 8% risk at 14 days of: all-cause mortality, new or recurrent MD, or severe recurrent ischemia requiring urgent re vascularization. Leukocytosis 12.2, likely reactive Pt afebrile, not tachycardic Will continue to monitor Impaired Glucose Tolerance - HBA1C 5.8 - Heart Healthy/Moderate Carbohydrate Diet - accuchecks ACHS - hypoglycemic protocol History of HTN - Medications: * given lasix 40 IV, coreg 25mg, lisinopril 10mg in ED * Coreg 25mg PO BID (hold SBP<100 or HR<60) * Lisinopril 20mg PO daily (hold SBP<100) * Lasix 40mg IV BID - continue to monitor History of Asthma, mild intermittent - saturating well on room air - duonebs 3ml INH q6h PRN shortness of breath Hypokalemia- resolved - Continue to monitor - replete as needed Substance Abuse Disorder - history of tobacco use and heavy drinking - Nicotine patch TD daily - [facility] protocol - cessation counseling - UDS etoh negative on admission Prophylaxis DVT: Lovenox 100mg q12h GI: pepcid 20mg PO BID HHD, 1200ml fluid restriction Physical Therapy eval and Treat F/u with SW for lifevest <Merari Carlos V - Last Filed: 08/06/18 20:42> Objective - Vital Signs/Intake and Output Vital Signs (last 24 hours): Temp Pulse Resp BP Pulse Ox 98.2 F 85 20 120/82 95 08/06/18 16:30 08/06/18 16:30 08/06/18 16:30 08/06/18 17:48 08/06/18 16:30 - Medications Medications: Current Medications Albuterol/Ipratropium (Duoneb 3 Mg/0.5 Mg (3 Ml) Ud) 3 ml INH Q6H PRN PRN Reason: Shortness of Breath Aspirin (Aspirin Chewable) 81 mg PO DAILY [facility] Last Admin: 08/06/18 09:16 Dose: 81 mg Carvedilol (Coreg) 12.5 mg PO BID [facility] Last Admin: 08/06/18 17:47 Dose: 12.5 mg Dextrose (Dextrose 50% Inj) 0 ml IV STAT PRN; Protocol PRN Reason: Hypoglycemia Protocol Dextrose (Glutose 15) 0 gm PO ONCE PRN; Protocol PRN Reason: Hypoglycemia Protocol Enoxaparin Sodium (Lovenox) 100 mg SC Q12 [facility] Last Admin: 08/06/18 09:16 Dose: 100 mg Famotidine (Pepcid) 20 mg PO BID [facility] Last Admin: 08/06/18 17:47 Dose: 20 mg Furosemide (Lasix) 40 mg IVP BID [facility] Last Admin: 08/06/18 17:48 Dose: 40 mg Glucagon (Glucagen Diagnostic Kit) 0 mg IM STAT PRN; Protocol PRN Reason: Hypoglycemia Protocol Dextrose (Dextrose 5% In Water 1000 Ml) 1,000 mls @ 0 mls/hr IV .Q0M PRN; Protocol PRN Reason: Hypoglycemia Protocol Lisinopril (Zestril) 20 mg PO DAILY [facility] Last Admin: 08/06/18 09:23 Dose: Not Given Nicotine (Nicoderm Cq) 1 patch TD DAILY [facility] Last Admin: 08/06/18 09:16 Dose: 1 patch Nitroglycerin (Nitrostat Sl Tab) 0.4 mg SL Q5M PRN PRN Reason: Pain, severe (8-10) Rosuvastatin Calcium (Crestor) 20 mg PO HS [facility] Last Admin: 08/05/18 22:04 Dose: 20 mg Warfarin Sodium (Coumadin) 10 mg PO 1800 [facility] Stop: 08/06/18 20:46 - Labs Labs: 08/06/18 09:17 08/06/18 09:17 PT 12.5 SECONDS (9.7-12.2) H 08/03/18 12:34 INR 1.1 08/03/18 12:34 APTT 32 SECONDS (21-34) 08/03/18 12:34 Attending/Attestation - Attestation I have personally seen and examined this patient.: Yes I have fully participated in the care of the patient.: Yes I have reviewed all pertinent clinical information, including history, physical exam and plan: Yes Notes (Text): Patient seen, examined and case discussed peoples hospital day-time resident. Patient seen this afternoon. Patient reports he is feeling better. He is without chest pain presently however he understands given his low ejection fraction he is at risk for deadly heart arrhytmias which is why he remains on telemetry. We have adjusted his Coreg down to 12.5mg PO BID given his borderline blood pressure. Cardiology is awaiting for cardiac cath report from [facility]. Patient is on therapuetic lovenox for suspected ventricular thrombus and started first dose of Coumadin per cardiology consultation. Patient is aware he will likely need a lifevest and/or pacemaker in the the future. We will need to follow-up with case management tomorrow regarding insurance for the patient to see coverage for the lifevest. Patient is amenable to plan. Continue, aspirin, beta-aníbal, diuresis, pollo switch to arb given increase lung cancer risk, statin Therapuetic lovenox to coumadin for left ventricular thrombus suspected on echo.
[2018-08-06] MEDS: Enoxaparin 100 mg Syringe SC SCH ×2 (09:16→22:07)
[2018-08-06 09:25] LABS: BASO # 0.1 K/uL (0.0-0.2); BASO % 0.7 % (0.0-2.0); EOS # 0.1 K/uL (0.0-0.7); EOS % 1.1 % (0.0-4.0); HEMOGLOBIN 15.7 g/dL (12.0-18.0); LYMPH # 2.2 K/uL (1.0-4.3); LYMPH % 29.1 % (20.0-40.0); MEAN CELL VOLUME 99.3 fL (80.0-94.0); MEAN CORPUSCULAR HEMOGLOBIN 33.3 pg (27.0-31.0); MEAN CORPUSCULAR HGB CONC 33.5 g/dL (33.0-37.0); MEAN PLATELET VOLUME 7.5 fL (7.2-11.7); MONO # 0.8 K/uL (0.0-0.8); MONO % 10.4 % (0.0-10.0); NEUT # 4.5 K/uL (1.8-7.0); NEUT % 58.7 % (50.0-75.0); RBC 4.72 Mil/uL (4.40-5.90); RED CELL DISTRIBUTION WIDTH 14.5 % (11.5-14.5); WHITE BLOOD COUNT 7.7 K/uL (4.8-10.8)
[2018-08-06 09:48] LABS: ALB/GLOB RATIO 1.1 (1.0-2.1); ALBUMIN 4.1 g/dL (3.5-5.0); ALT/SGPT 46 U/L (21-72); AST/SGOT 51 U/L (17-59); BLOOD UREA NITROGEN 15 mg/dL (9-20); CALCIUM 8.7 mg/dl (8.6-10.4); GFR NON-AFRICAN AMERICAN > 60
--- NOTE | 2018-08-06 11:40 | CARD ---
APPROVED REPORT Date of service: 08/04/2018 EXAM: Two-dimensional and M-mode echocardiogram with Doppler and color Doppler. INDICATION Congestive Heart Failure 2D DIMENSIONS IVSd1.3 (0.7-1.1cm)LVDd6.6 (3.9-5.9cm) PWd1.3 (0.7-1.1cm)LA [id number] (18-58mL) LVDs5.7 (2.5-4.0cm)FS (%) 14.8 % LVEF (%)30.6 (>50%)LVEF (Rudd's)33.61 % M-Mode DIMENSIONS Left Atrium (MM)5.26 (2.5-4.0cm)IVSd1.16 (0.7-1.1cm) Aortic Root3.97 (2.2-3.7cm)LVDd7.05 (4.0-5.6cm) Aortic Cusp Exc.2.45 (1.5-2.0cm)PWd1.08 (0.7-1.1cm) FS (%) 15 %LVDs5.97 (2.0-3.8cm) LVEF (%)31 (>50%) Mitral Valve MV E Erpxhfbk401.4cm/sMV A Blunlzzr86.7cm/sE/A ratio2.8 HCGM238.57 cm/s TDI Lateral E' Peak V4.29cm/sMedial E' Peak V6.35cm/sE/Lateral E'27.8 E/Medial E'18.8 Tricuspid Valve TR Peak [id number]/sTR Peak Gr.[id number] LEFT VENTRICLE The Left Ventricle is moderately dilated. There is normal left ventricular wall thickness. The systolic function is moderately to severely impaired. There is global hypokinesis of the left ventricle. RIGHT VENTRICLE The right ventricle is normal size. ATRIA The left atrium is moderately dilated. The right atrium size is normal. AORTIC VALVE There is trace aortic regurgitation. MITRAL VALVE Mitral regurgitation is moderate. TRICUSPID VALVE There is severe tricuspid regurgitation. <Conclusion> Moderate to severe LV systolic dysfunction. Dilated LA and LV. Moderate MR. Trace AR. Severe TR.
--- NOTE | 2018-08-06 19:33 | PN ---
DATE: 08/06/2018 SUBJECTIVE: The patient denies chest pain. Shortness of breath has improved. PHYSICAL EXAMINATION: VITAL SIGNS: Blood pressure 127/92, heart rate 96, temperature 98.1, and respirations 20. HEENT: Normocephalic. CHEST: Minimal rhonchi. HEART: S1 and S2 regular. EXTREMITIES: Trace leg edema. LABORATORY DATA: Today's SMA-7 are within normal limits except for glucose of 152. Today's hemoglobin, hematocrit, white count, and platelet counts are within normal limits. ASSESSMENT: 1. Nonischemic cardiomyopathy. 2. Morbid obesity. 3. Hyperlipidemia. 4. Questionable left ventricular thrombus. RECOMMENDATIONS: Continue current aspirin, Coreg, Crestor, IV Lasix, and therapeutic subcutaneous Lovenox. Start Coumadin with initial dose of 10 mg orally today. Awaiting cardiac catheterization report from [facility]. 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 Boubacar Gupta MD
--- NOTE | 2018-08-07 07:25 | CP.PCM.PN ---
Subjective - Date & Time of Evaluation Date of Evaluation: 08/07/18 Time of Evaluation: 07:25 - Subjective Subjective: Progress Note for Hospitalist service Patient seen and examined at bedside. He has no complaints currently. He states that he has no chest pain, no shortness of breath, no palpitation. He denies fevers, chills, headache, dizziness, abdominal pain, nausea, vomiting, diarrhea, leg pain, leg swelling, dysuria. Objective - Vital Signs/Intake and Output Vital Signs (last 24 hours): Temp Pulse Resp BP Pulse Ox 98.2 F 78 20 132/88 100 08/06/18 23:10 08/07/18 03:31 08/06/18 23:10 08/06/18 23:10 08/06/18 23:10 Intake and Output: 08/07/18 08/07/18 06:59 18:59 Intake Total 1000 Balance 1000 - Medications Medications: Current Medications Albuterol/Ipratropium (Duoneb 3 Mg/0.5 Mg (3 Ml) Ud) 3 ml INH Q6H PRN PRN Reason: Shortness of Breath Aspirin (Aspirin Chewable) 81 mg PO DAILY [facility] Last Admin: 08/06/18 09:16 Dose: 81 mg Carvedilol (Coreg) 12.5 mg PO BID [facility] Last Admin: 08/06/18 17:47 Dose: 12.5 mg Dextrose (Dextrose 50% Inj) 0 ml IV STAT PRN; Protocol PRN Reason: Hypoglycemia Protocol Dextrose (Glutose 15) 0 gm PO ONCE PRN; Protocol PRN Reason: Hypoglycemia Protocol Enoxaparin Sodium (Lovenox) 100 mg SC Q12 [facility] Last Admin: 08/06/18 22:07 Dose: 100 mg Famotidine (Pepcid) 20 mg PO BID [facility] Last Admin: 08/06/18 17:47 Dose: 20 mg Furosemide (Lasix) 40 mg IVP BID [facility] Last Admin: 08/06/18 17:48 Dose: 40 mg Glucagon (Glucagen Diagnostic Kit) 0 mg IM STAT PRN; Protocol PRN Reason: Hypoglycemia Protocol Dextrose (Dextrose 5% In Water 1000 Ml) 1,000 mls @ 0 mls/hr IV .Q0M PRN; Protocol PRN Reason: Hypoglycemia Protocol Losartan Potassium (Cozaar) 50 mg PO DAILY [facility] Nicotine (Nicoderm Cq) 1 patch TD DAILY [facility] Last Admin: 08/06/18 09:16 Dose: 1 patch Nitroglycerin (Nitrostat Sl Tab) 0.4 mg SL Q5M PRN PRN Reason: Pain, severe (8-10) Rosuvastatin Calcium (Crestor) 20 mg PO HS [facility] Last Admin: 08/06/18 22:07 Dose: 20 mg - Labs Labs: 08/06/18 09:17 08/06/18 09:17 PT 12.5 SECONDS (9.7-12.2) H 08/03/18 12:34 INR 1.1 08/03/18 12:34 APTT 32 SECONDS (21-34) 08/03/18 12:34 - Constitutional Appears: Well, No Acute Distress - Head Exam Head Exam: ATRAUMATIC, NORMOCEPHALIC - Eye Exam Eye Exam: EOMI, PERRL - ENT Exam ENT Exam: Mucous Membranes Moist - Neck Exam Neck Exam: Full ROM. absent: Tenderness - Respiratory Exam Respiratory Exam: Clear to Ausculation Bilateral, NORMAL BREATHING PATTERN. absent: Rales, Rhonchi, Wheezes, Respiratory Distress, Stridor - Cardiovascular Exam Cardiovascular Exam: REGULAR RHYTHM, +S1, +S2. absent: Gallop, Rubs, Murmur - GI/Abdominal Exam GI & Abdominal Exam: Soft, Normal Bowel Sounds. absent: Distended, Firm, Guarding, Rigid, Tenderness Additional comments: Obese - Extremities Exam Extremities Exam: Normal Capillary Refill. absent: Calf Tenderness, Pedal Edema - Back Exam Back Exam: absent: CVA tenderness (L), CVA tenderness (R) - Neurological Exam Neurological Exam: Alert, Awake, Oriented x3 - Psychiatric Exam Psychiatric exam: Normal Affect, Normal Mood - Skin Skin Exam: Dry, Intact, Warm Assessment and Plan - Assessment and Plan (Free Text) Assessment: 42 year old male with past medical history of CHF and asthma presented to the ER with chest pressure and palpitations. Echo reveals EF at 30%. Plan: HFrEF (systolic) - Cardiology consulted: Dr. Gupta --> help appreciated - ECHO EF 30% Recommendation of a life vest - Possible apical thrombus Lovenox 100mg SC q12h - EKG: tachycardia, left ventricular hypertrophy, t wave abnormalities - BNP 1600 upon admission --> 357 - TSH 4.97; UDS negative - ENRIKE negative x 3 - Medications: * ASA 325mg PO x1 taken given on admission * ASA 81mg PO daily * Nitroglycerin SL PRN chest pain * Coreg 12.5mg PO BID (hold SBP<100 or HR<60) * Losartan 50mg PO daily * Lasix 40mg IV BID * Crestor changed from 10mg to 20mg PO HS - adjusted based on ASCVD score of 6.9 which recommends a moderate intensity statin - Lipid panel Triglycerides 158, cholesterol 202, LDL 158, HDL 41 - ECHO Moderate to severe LV systolic dysfunction. Dilated LA and LV. moderate MR. Trace AR. Severe TR. - Chest Xray: (08/05/18): Mild bibasilar atelectasis tiny bibasilar effusions not excluded. Slight increased central pulmonary vasculature - I/Os; monitor daily weights Cardiomyopathy -ECHO Moderate to severe LV systolic dysfunction. Dilated LA and LV. moderate MR. Trace AR. Severe TR. -Started Coumadin 10mg PO yesterday -Coumadin 5mg PO today -f/u PT/INR tomorrow Chest Pain - resolved - patient currently asymptomatic - please see above - CAMPBELL score 3 correlating with 8% risk at 14 days of: all-cause mortality, new or recurrent SD, or severe recurrent ischemia requiring urgent revascularization. Leukocytosis - resolved 7.9, Pt afebrile, not tachycardic Will continue to monitor Impaired Glucose Tolerance - HBA1C 5.8 - Heart Healthy/Moderate Carbohydrate Diet - accuchecks ACHS - hypoglycemic protocol History of HTN - Medications: * given lasix 40 IV, coreg 25mg, lisinopril 10mg in ED * Coreg 12.5mg PO BID (hold SBP<100 or HR<60) * Losartan 50mg PO daily (hold SBP<100) * Lasix 40mg IV BID - continue to monitor History of Asthma, mild intermittent - saturating well on room air - duonebs 3ml INH q6h PRN shortness of breath Hypokalemia- resolved - Continue to monitor - replete as needed Substance Abuse Disorder - history of tobacco use and heavy drinking - Nicotine patch TD daily - [facility] protocol - cessation counseling - UDS etoh negative on admission Prophylaxis DVT: Lovenox 100mg q12h GI: pepcid 20mg PO BID HHD, 1200ml fluid restriction Dietitian referral for cardiac diet education Physical Therapy eval and Treat Plan for optimizing INR to goal Case discussed with Dr. Maikel Rodríguez, PGY1
[2018-08-07] MEDS: Enoxaparin 100 mg Syringe SC SCH ×2 (09:09→21:17)
[2018-08-07 09:24] LABS: INR 1.2; PROTHROMBIN TIME 12.7 SECONDS (9.7-12.2)
[2018-08-07 09:26] LABS: BASO # 0.1 K/uL (0.0-0.2); BASO % 0.7 % (0.0-2.0); EOS # 0.1 K/uL (0.0-0.7); EOS % 1.5 % (0.0-4.0); HEMOGLOBIN 15.7 g/dL (12.0-18.0); LYMPH # 2.2 K/uL (1.0-4.3); LYMPH % 27.8 % (20.0-40.0); MEAN CELL VOLUME 98.6 fL (80.0-94.0); MEAN CORPUSCULAR HEMOGLOBIN 33.1 pg (27.0-31.0); MEAN CORPUSCULAR HGB CONC 33.5 g/dL (33.0-37.0); MEAN PLATELET VOLUME 7.5 fL (7.2-11.7); MONO # 1.1 K/uL (0.0-0.8); MONO % 14.1 % (0.0-10.0); NEUT # 4.4 K/uL (1.8-7.0); NEUT % 55.9 % (50.0-75.0); NRBC % 0.1 % (0.0-2.0); RBC 4.74 Mil/uL (4.40-5.90); RED CELL DISTRIBUTION WIDTH 14.4 % (11.5-14.5); WHITE BLOOD COUNT 7.9 K/uL (4.8-10.8)
[2018-08-07 09:37] LABS: ALB/GLOB RATIO 1.1 (1.0-2.1); ALBUMIN 4.4 g/dL (3.5-5.0); ALT/SGPT 50 U/L (21-72); AST/SGOT 59 U/L (17-59); BLOOD UREA NITROGEN 15 mg/dL (9-20); CALCIUM 8.9 mg/dl (8.6-10.4); GFR NON-AFRICAN AMERICAN > 60
--- NOTE | 2018-08-07 12:58 | CARD ---
APPROVED REPORT Date of service: 08/04/2018 EKG Measurement Heart [id number] <Conclusion> Normal sinus rhythm Possible Left atrial enlargement Left ventricular hypertrophy T wave abnormality, consider inferior ischemia T wave abnormality, consider anterolateral ischemia Prolonged QT Abnormal ECG
--- NOTE | 2018-08-07 22:25 | CARD ---
APPROVED REPORT Date of service: 08/03/2018 EKG Measurement Heart [id number] <Conclusion> Normal sinus rhythm Possible Left atrial enlargement Left ventricular hypertrophy T wave abnormality, consider anterolateral ischemia Prolonged QT Abnormal ECG
--- NOTE | 2018-08-07 22:35 | CARD ---
APPROVED REPORT Date of service: 08/03/2018 EKG Measurement Heart [id number] <Conclusion> Sinus tachycardia Possible Left atrial enlargement Left ventricular hypertrophy Nonspecific T wave abnormality Abnormal ECG
[2018-08-08 06:38] LABS: BASO # 0.1 K/uL (0.0-0.2); BASO % 0.8 % (0.0-2.0); EOS # 0.1 K/uL (0.0-0.7); EOS % 1.5 % (0.0-4.0); LYMPH # 2.2 K/uL (1.0-4.3); MEAN CELL VOLUME 98.2 fL (80.0-94.0); MEAN CORPUSCULAR HEMOGLOBIN 32.8 pg (27.0-31.0); MEAN CORPUSCULAR HGB CONC 33.4 g/dL (33.0-37.0); MEAN PLATELET VOLUME 7.3 fL (7.2-11.7); MONO # 1.1 K/uL (0.0-0.8); MONO % 14.1 % (0.0-10.0); NEUT # 4.6 K/uL (1.8-7.0); NEUT % 56.6 % (50.0-75.0); NRBC % 0.1 % (0.0-2.0); RBC 4.89 Mil/uL (4.40-5.90); RED CELL DISTRIBUTION WIDTH 14.4 % (11.5-14.5); WHITE BLOOD COUNT 8.1 K/uL (4.8-10.8)
[2018-08-08 06:50] LABS: INR 1.5; PROTHROMBIN TIME 16.8 SECONDS (9.7-12.2)
[2018-08-08 07:11] LABS: ALB/GLOB RATIO 1.1 (1.0-2.1); ALBUMIN 4.2 g/dL (3.5-5.0); ALT/SGPT 53 U/L (21-72); AST/SGOT 48 U/L (17-59); BLOOD UREA NITROGEN 19 mg/dL (9-20); CALCIUM 8.8 mg/dl (8.6-10.4); GFR NON-AFRICAN AMERICAN > 60
--- NOTE | 2018-08-08 07:28 | CP.PCM.PN ---
Subjective - Date & Time of Evaluation Date of Evaluation: 08/08/18 Time of Evaluation: 08:00 - Subjective Subjective: PGY-[address] Maikel Bland Patient is seen and examined sitting in bed. Patient states feeling well with no acute events overnight reported. Denies any chest pain, shortness of breath, fever, chills. Patient is eating well, denies n/v/d/c. Patient has no urinary symptoms. states is out of bed and walking. No other complaints at this time. Objective - Vital Signs/Intake and Output Vital Signs (last 24 hours): Temp Pulse Resp BP Pulse Ox 98.2 F 78 20 105/70 97 08/07/18 23:10 08/08/18 03:20 08/07/18 23:10 08/07/18 23:10 08/07/18 16:00 - Medications Medications: Current Medications Albuterol/Ipratropium (Duoneb 3 Mg/0.5 Mg (3 Ml) Ud) 3 ml INH Q6H PRN PRN Reason: Shortness of Breath Aspirin (Aspirin Chewable) 81 mg PO DAILY [facility] Last Admin: 08/07/18 09:10 Dose: 81 mg Carvedilol (Coreg) 12.5 mg PO BID [facility] Last Admin: 08/07/18 17:28 Dose: 12.5 mg Dextrose (Dextrose 50% Inj) 0 ml IV STAT PRN; Protocol PRN Reason: Hypoglycemia Protocol Dextrose (Glutose 15) 0 gm PO ONCE PRN; Protocol PRN Reason: Hypoglycemia Protocol Enoxaparin Sodium (Lovenox) 100 mg SC Q12 [facility] Last Admin: 08/07/18 21:17 Dose: 100 mg Famotidine (Pepcid) 20 mg PO BID [facility] Last Admin: 08/07/18 17:28 Dose: 20 mg Furosemide (Lasix) 40 mg IVP BID [facility] Last Admin: 08/07/18 17:29 Dose: 40 mg Glucagon (Glucagen Diagnostic Kit) 0 mg IM STAT PRN; Protocol PRN Reason: Hypoglycemia Protocol Dextrose (Dextrose 5% In Water 1000 Ml) 1,000 mls @ 0 mls/hr IV .Q0M PRN; Protocol PRN Reason: Hypoglycemia Protocol Losartan Potassium (Cozaar) 50 mg PO DAILY [facility] Last Admin: 08/07/18 09:10 Dose: 50 mg Nicotine (Nicoderm Cq) 1 patch TD DAILY [facility] Last Admin: 08/07/18 09:09 Dose: 1 patch Nitroglycerin (Nitrostat Sl Tab) 0.4 mg SL Q5M PRN PRN Reason: Pain, severe (8-10) Rosuvastatin Calcium (Crestor) 20 mg PO HS [facility] Last Admin: 08/07/18 21:17 Dose: 20 mg - Labs Labs: 08/08/18 06:26 08/08/18 06:26 PT 16.8 SECONDS (9.7-12.2) H 08/08/18 06:26 INR 1.5 08/08/18 06:26 APTT 32 SECONDS (21-34) 08/03/18 12:34 - Constitutional Appears: Well, Non-toxic, No Acute Distress - Head Exam Head Exam: ATRAUMATIC, NORMOCEPHALIC - Eye Exam Eye Exam: EOMI, Normal appearance - ENT Exam ENT Exam: Mucous Membranes Moist, Normal Exam - Neck Exam Neck Exam: Full ROM - Respiratory Exam Respiratory Exam: Clear to Ausculation Bilateral, NORMAL BREATHING PATTERN. absent: Accessory Muscle Use, Rales, Rhonchi, Wheezes, Respiratory Distress - Cardiovascular Exam Cardiovascular Exam: REGULAR RHYTHM, +S1, +S2 - GI/Abdominal Exam GI & Abdominal Exam: Soft, Normal Bowel Sounds. absent: Tenderness Additional comments: Obese abdomen - Extremities Exam Extremities Exam: Full ROM, Normal Inspection. absent: Pedal Edema, Tenderness - Back Exam Back Exam: Full ROM, NORMAL INSPECTION - Neurological Exam Neurological Exam: Alert, Awake, Oriented x3 - Psychiatric Exam Psychiatric exam: Normal Affect, Normal Mood - Skin Skin Exam: Dry, Intact, Normal Color, Warm Assessment and Plan - Assessment and Plan (Free Text) Assessment: 42 year old male with past medical history of CHF and asthma presented to the ER with chest pressure and palpitations. Echo reveals EF at 30%, indicative of heart failure of reduced ejection fraction and non-ischemic cardiomyopathy, currently on coumadin PO. Plan: HFrEF (systolic) - EKG: tachycardia, left ventricular hypertrophy, t wave abnormalities - BNP 1600 upon admission --> 357 - TSH 4.97; UDS negative - ENRIKE negative x 3 - Medications: * ASA 81mg PO daily * Nitroglycerin 0.4mg SL PRN chest pain * Coreg 12.5mg PO BID (hold SBP<100 or HR<60) * Losartan 50mg PO daily * Lasix 40mg IV BID * Crestor 20mg PO HS - based on ASCVD score of 6.9 which recommends a moderate intensity statin - Lipid panel Triglycerides 158, cholesterol 202, LDL 158, HDL 41 - ECHO EF 30%, Moderate to severe LV systolic dysfunction. Dilated LA and LV. moderate MR. Trace AR. Severe TR. - Chest Xray: (08/05/18): Mild bibasilar atelectasis tiny bibasilar effusions not excluded. Slight increased central pulmonary vasculature - I/Os; monitor daily weights - Cardiology consulted: Dr. Gupta --> help appreciated - ECHO EF 30%, with moderate to severe pulm hypertension, right ventricle dilated and hypokinetic, no significant mitral insufficiency, apical thromuc cannot be completely excluded - Recommendation of a life vest - Possible apical thrombus Lovenox 100mg SC q12h Cardiomyopathy -ECHO Moderate to severe LV systolic dysfunction. Dilated LA and LV. moderate MR. Trace AR. Severe TR. -Started Coumadin 10mg PO 08/06/2017 - received coumadin 5mg PO on 08/07/2017 - INR from 1.2 (08/07) to 1.5 (08/08) - therapeutic INR goal between 2-3 - One dose of coumadin 5mg PO @ 18:00 today (08/08) - f/u PT/INR tomorrow - if patient achieved therapeutic dose, can be d/c home Chest Pain - resolved - patient currently asymptomatic - please see above - CAMPBELL score 3 correlating with 8% risk at 14 days of: all-cause mortality, new or recurrent NE, or severe recurrent ischemia requiring urgent revascularization. Leukocytosis - resolved WBC WNL Pt afebrile, not tachycardic Will continue to monitor Impaired Glucose Tolerance - HBA1C 5.8 - Heart Healthy/Moderate Carbohydrate Diet - accuchecks ACHS - hypoglycemic protocol History of HTN - Medications: * in ED: lasix 40 IV, coreg 25mg, lisinopril 10mg * Coreg 12.5mg PO BID (hold SBP<100 or HR<60) * Losartan 50mg PO daily (hold SBP<100) * Lasix 40mg IV BID - continue to monitor History of Asthma, mild intermittent - saturating well on room air - duonebs 3ml INH q6h PRN shortness of breath Hypokalemia- resolved - Continue to monitor - replete as needed Substance Abuse Disorder - history of tobacco use and heavy drinking - Nicotine patch TD daily - [facility] protocol - cessation counseling - UDS etoh negative on admission Prophylaxis DVT: Lovenox 100mg q12h GI: pepcid 20mg PO BID HHD, 1200ml fluid restriction Dietitian referral for cardiac diet education Physical Therapy eval and Treat Plan for optimizing INR to goal DISPO: awaiting to reach therapeutic INR goal (2-3) to start planning of discharge for patient. Will follow up with SW/manager supply chain planning in regards to insurance, as patient will need a life vest. Plan discussed with Dr Noemi Galindo, PGY-1
[2018-08-08] MEDS: Enoxaparin 100 mg Syringe SC SCH ×2 (09:25→21:07)
--- NOTE | 2018-08-09 07:21 | CP.PCM.PN ---
Subjective - Date & Time of Evaluation Date of Evaluation: 08/09/18 Time of Evaluation: 07:20 Objective - Vital Signs/Intake and Output Vital Signs (last 24 hours): Temp Pulse Resp BP Pulse Ox 98 F 78 20 106/68 97 08/09/18 04:44 08/09/18 04:44 08/09/18 04:44 08/09/18 04:44 08/09/18 04:44 Intake and Output: 08/09/18 08/09/18 06:59 18:59 Intake Total 120 Balance 120 - Medications Medications: Current Medications Albuterol/Ipratropium (Duoneb 3 Mg/0.5 Mg (3 Ml) Ud) 3 ml INH Q6H PRN PRN Reason: Shortness of Breath Aspirin (Aspirin Chewable) 81 mg PO DAILY [facility] Last Admin: 08/08/18 09:25 Dose: 81 mg Carvedilol (Coreg) 12.5 mg PO BID [facility] Last Admin: 08/08/18 17:30 Dose: 12.5 mg Dextrose (Dextrose 50% Inj) 0 ml IV STAT PRN; Protocol PRN Reason: Hypoglycemia Protocol Dextrose (Glutose 15) 0 gm PO ONCE PRN; Protocol PRN Reason: Hypoglycemia Protocol Enoxaparin Sodium (Lovenox) 100 mg SC Q12 [facility] Last Admin: 08/08/18 21:07 Dose: 100 mg Famotidine (Pepcid) 20 mg PO BID [facility] Last Admin: 08/08/18 17:30 Dose: 20 mg Furosemide (Lasix) 40 mg IVP BID [facility] Last Admin: 08/08/18 17:31 Dose: 40 mg Glucagon (Glucagen Diagnostic Kit) 0 mg IM STAT PRN; Protocol PRN Reason: Hypoglycemia Protocol Dextrose (Dextrose 5% In Water 1000 Ml) 1,000 mls @ 0 mls/hr IV .Q0M PRN; Protocol PRN Reason: Hypoglycemia Protocol Losartan Potassium (Cozaar) 50 mg PO DAILY [facility] Last Admin: 08/08/18 09:33 Dose: 50 mg Nicotine (Nicoderm Cq) 1 patch TD DAILY [facility] Last Admin: 08/08/18 09:24 Dose: 1 patch Nitroglycerin (Nitrostat Sl Tab) 0.4 mg SL Q5M PRN PRN Reason: Pain, severe (8-10) Rosuvastatin Calcium (Crestor) 20 mg PO HS [facility] Last Admin: 08/08/18 21:08 Dose: 20 mg - Labs Labs: 08/08/18 06:26 08/08/18 06:26 PT 16.8 SECONDS (9.7-12.2) H 08/08/18 06:26 INR 1.5 08/08/18 06:26 APTT 32 SECONDS (21-34) 08/03/18 12:34
[2018-08-09 07:57] LABS: INR 1.9; PROTHROMBIN TIME 20.6 SECONDS (9.7-12.2)
[2018-08-09] MEDS: Enoxaparin 100 mg Syringe SC SCH (09:12)
[2018-08-09 09:27] VITALS: TEMP 98.3; O2SAT 98
[2018-08-09 10:59] VITALS: BP 110/70
[2018-08-09 12:04] VITALS: PULSE 83
--- NOTE | 2018-08-09 12:48 | CP.PCM.DIS ---
Provider - Provider Date of Admission: 08/05/18 12:35 Attending physician: Maikel Bland MD Consults: 08/03/18 17:11 Cardiology Consult Routine Comment: Consulting Provider: Boubacar Gupta Consulting Physician: Boubacar Gupta Reason for Consult: pt with CHF, chest pressure, palpitations 08/05/18 11:37 Case Management Referral Routine Comment: Physician Instructions: Reason For Exam: Reason for Referral: Surveyor Instrument Assistant Eval 08/06/18 20:43 Inpatient SENIOR CONSULTING MANAGER Core Measures Referral Routine Comment: Physician Instructions: Reason For Exam: chf Time Spent in preparation of Discharge (in minutes): 40 Diagnosis - Discharge Diagnosis (1) Heart failure with reduced ejection fraction Status: Acute (2) Cardiomyopathy, nonischemic Status: Acute Hospital Course - Lab Results Lab Results: Most Recent Lab Values WBC 8.1 K/uL (4.8-10.8) 08/08/18 06:26 RBC 4.89 Mil/uL (4.40-5.90) 08/08/18 06:26 Hgb 16.0 g/dL (12.0-18.0) 08/08/18 06:26 Hct 48.0 % (35.0-51.0) 08/08/18 06:26 MCV 98.2 fL (80.0-94.0) H 08/08/18 06:26 MCH 32.8 pg (27.0-31.0) H 08/08/18 06:26 MCHC 33.4 g/dL (33.0-37.0) 08/08/18 06:26 RDW 14.4 % (11.5-14.5) 08/08/18 06:26 Plt Count 377 K/uL (130-400) 08/08/18 06:26 MPV 7.3 fL (7.2-11.7) 08/08/18 06:26 Neut % (Auto) 56.6 % (50.0-75.0) 08/08/18 06:26 Lymph % (Auto) 27.0 % (20.0-40.0) 08/08/18 06:26 Reynolds % (Auto) 14.1 % (0.0-10.0) H 08/08/18 06:26 Eos % (Auto) 1.5 % (0.0-4.0) 08/08/18 06:26 Baso % (Auto) 0.8 % (0.0-2.0) 08/08/18 06:26 Neut # (Auto) 4.6 K/uL (1.8-7.0) 08/08/18 06:26 Lymph # (Auto) 2.2 K/uL (1.0-4.3) 08/08/18 06:26 Reynolds # (Auto) 1.1 K/uL (0.0-0.8) H 08/08/18 06:26 Eos # (Auto) 0.1 K/uL (0.0-0.7) 08/08/18 06:26 Baso # (Auto) 0.1 K/uL (0.0-0.2) 08/08/18 06:26 PT 20.6 SECONDS (9.7-12.2) H 08/09/18 07:20 INR 1.9 08/09/18 07:20 APTT 32 SECONDS (21-34) 08/03/18 12:34 Sodium 136 mmol/L (132-148) 08/08/18 06:26 Potassium 3.8 mmol/L (3.6-5.2) 08/08/18 06:26 Chloride 101 mmol/L (98-107) 08/08/18 06:26 Carbon Dioxide 26 mmol/L (22-30) 08/08/18 06:26 Anion Gap 13 (10-20) 08/08/18 06:26 BUN 19 mg/dL (9-20) 08/08/18 06:26 Creatinine 0.8 mg/dL (0.8-1.5) 08/08/18 06:26 Est GFR ( Amer) > 60 08/08/18 06:26 Est GFR (Non-Af Amer) > 60 08/08/18 06:26 POC Glucose (mg/dL) 157 mg/dL (65-110) H 08/08/18 21:07 Random Glucose 128 mg/dL (75-110) H 08/08/18 06:26 Hemoglobin A1c 5.8 % (4.2-6.5) 08/03/18 17:21 Calcium 8.8 mg/dl (8.6-10.4) 08/08/18 06:26 Phosphorus 4.1 mg/dL (2.5-4.5) 08/09/18 07:20 Magnesium 1.8 mg/dL (1.6-2.3) 08/09/18 07:20 Total Bilirubin 0.3 mg/dL (0.2-1.3) 08/08/18 06:26 AST 48 U/L (17-59) 08/08/18 06:26 ALT 53 U/L (21-72) 08/08/18 06:26 Alkaline Phosphatase 67 U/L (38-126) 08/08/18 06:26 Total Creatine Kinase 217 U/L (55-170) H 08/04/18 00:25 CK-MB (Mass) 2.13 ng/mL (0.0-3.38) 08/04/18 00:25 Troponin I < 0.0120 ng/mL (0.00-0.120) 08/04/18 00:25 NT-Pro-B Natriuret Pep 357 pg/mL (0-450) 08/05/18 07:27 Total Protein 8.2 g/dL (6.3-8.3) 08/08/18 06:26 Albumin 4.2 g/dL (3.5-5.0) 08/08/18 06:26 Globulin 4.0 gm/dL (2.2-3.9) H 08/08/18 06:26 Albumin/Globulin Ratio 1.1 (1.0-2.1) 08/08/18 06:26 Triglycerides 158 mg/dL (0-149) H 08/03/18 17:21 Cholesterol 202 mg/dL (0-199) H 08/03/18 17:21 LDL Cholesterol Direct 158 mg/dL (0-129) H 08/03/18 17:21 HDL Cholesterol 41 mg/dL (30-70) 08/03/18 17:21 TSH 3rd Generation 4.97 mIU/L (0.46-4.68) H 08/03/18 17:21 Urine Opiates Screen Negative (NEGATIVE) 08/03/18 22:05 Urine Methadone Screen Negative (NEGATIVE) 08/03/18 22:05 Ur Barbiturates Screen Negative (NEGATIVE) 08/03/18 22:05 Ur Phencyclidine Scrn Negative (NEGATIVE) 08/03/18 22:05 Ur Amphetamines Screen Negative (NEGATIVE) 08/03/18 22:05 U Benzodiazepines Scrn Negative (NEGATIVE) 08/03/18 22:05 U Oth Cocaine Metabols Negative (NEGATIVE) 08/03/18 22:05 U Cannabinoids Screen Negative (NEGATIVE) 08/03/18 22:05 Alcohol, Quantitative < 10 mg/dl (0-10) 08/03/18 17:21 - Hospital Course Hospital Course: On admission: Patient is a 42yo male with PMH of CHF and asthma presenting to hospital with palpitations, shortness of breath, and chest pressure. He has been having palpitations intermittently every other day for the past 5 months as he has stopped taking his medications since then. He reports chest pressure at 10am this morning with shortness of breath as he was walking to work. He felt the pressure in the center of his chest, rating it 10/10. He took aspirin 325mg at home with no relief. He used his albuterol inhaler at home for the shortness of breath with minimal relief. He denies dizziness, loss of consciousness, chest pain, sweating, nausea, vomiting, diarrhea, numbness, tingling or swelling. He reports sleeping at home with multiple pillows due to comfort. He says he drinks a lot of water. He denies previous intubations, night time asthma attacks, or daily albuterol use. Hospital course: Patient was admitted for heart failure with reduced ejection fracture and nonischemic cardiomyopathy after patient presented for chest pressure, shortness of breath and palpitations. Campaign Worker Dr. Gupta was consulted. Serial cardiac enzymes were within normal limits. Patient was treated with Aspirin, Nitroglycerin, Coreg, Losartan, Lasix, Crestor. Echocardiogram revealed moderated to severe LV systolic dysfunction with EF of 30%, dilated left atrium and left ventricle with moderate MR, trace AR and severe TR. Patient was given Lovenox for possible apical thrombus. Patient was started on Coumadin until INR was at therapeutic dose. For his history of hypertension, patient was treated with Coreg, Lasix and Losartan. For history of tobacco use and alcohol use, patient was given Nicotine patch, placed on CIWA protocol.Upon discharge, patient did not have any chest pressure, shortness of breath or palpitations. Discharge instructions: 1. Schedule appointment with [facility] located at [address] [place] [address] in [place], [place] by calling [phone]. Appointment must take place within 7 days to remeasure your Warfarin levels (INR level). 2. Through the [facility] you willl have your healthcare coordinated and referral will be provided for Campaign Worker as you will need to have a cardiac defibrillator placed. 3. Call [phone] for nearest Alcohol Anonymous meetings. 4. Call [phone] for help quitting smoking. 5. Do NOT delay in following above instructions. 6. Have a daily banana with your breakfast. Discharge Exam - Head Exam Head Exam: ATRAUMATIC, NORMOCEPHALIC - Eye Exam Eye Exam: EOMI, PERRL - ENT Exam ENT Exam: Mucous Membranes Moist - Neck Exam Neck exam: Full Rom - Respiratory Exam Respiratory Exam: Clear to PA & Lateral, UNREMARKABLE. absent: Rales, Rhonchi, Wheezes - Cardiovascular Exam Cardiovascular Exam: REGULAR RHYTHM, +S1, +S2. absent: Gallop, Rubs, Systolic Murmur - GI/Abdominal Exam GI & Abdominal Exam: Normal Bowel Sounds, Soft. absent: Distended, Firm, Tenderness - Extremities Exam Extremities exam: pedal pulses present Additional comments: no calf tenderness, no pedal edema - Back Exam Back exam: absent: CVA tenderness (L), CVA tenderness (R) - Neurological Exam Neurological exam: Alert, Oriented x3 - Psychiatric Exam Psychiatric exam: Normal Affect, Normal Mood - Skin Skin Exam: Dry, Intact, Normal Color Discharge Plan - Discharge Medications Prescriptions: Albuterol HFA [Ventolin HFA 90 mcg/actuation (8 g)] 2 puff IH BID PRN #1 inhaler PRN Reason: Shortness Of Breath Aspirin [Aspirin Chewable] 81 mg PO DAILY #30 chew Carvedilol [Coreg] 12.5 mg PO BID #60 tab Furosemide [Lasix] 40 mg PO DAILY #30 tab Losartan [Cozaar] 50 mg PO DAILY #30 tab Warfarin [Coumadin] 5 mg PO DAILY #30 tab - Follow Up Plan Condition: GOOD Disposition: HOME/ ROUTINE Instructions: Heart Healthy Diet, Heart Failure, Adult (DC), Chest Pain (DC), Albuterol, Aspirin, Carvedilol, Furosemide, Losartan, Warfarin Additional Instructions: Discharge instructions: 1. Schedule appointment with [facility] located at [address] [facility] in [place], [place] by calling [phone]. Appointment must take place within 7 days to remeasure your Warfarin levels (INR level). 2. Through the [facility] you willl have your healthcare coordinated and referral will be provided for Campaign Worker as you will need to have a cardiac defibrillator placed. 3. Call [phone] for nearest Alcohol Anonymous meetings. 4. Call [phone] for help quitting smoking. 5. Do NOT delay in following above instructions. 6. Have a daily banana with your breakfast. Referrals: Meng Sanches DO [[facility]] - 08/17/18 9:00 am
--- NOTE | 2018-08-09 17:27 | PCM.HF ---
Heart Failure Core Measure - Heart Failure Ejection Fraction: Less Than 40 % MONO Inhibitor Prescribed: Yes Beta-Silver Prescribed: Carvedilol Angiotensin II Receptor Silver Prescribed: No Contraindication/Reason for not providing: on arb AnticoagulationTherapy for Atrial Fibrillation/Atrialflutter: Yes Aldosterone Antagonist Prescribed: No Contraindication/Reason for not providing: bp running low Hydralazine Nitrate Prescribed: No Contraindication/Reason for not providing: bp running low Implantable Cardioverter Defibrillator Therapy: No Contraindication/Reason for not providing: medical managemtn as per cardiology Cardiac Resynchronization Therapy Prescribed: No Contraindication/Reason for not providing: medical managment - Follow up Will be discharged to: Home Follow Up Date (must be within 7 days from discharge): 08/14/18 Follow Up Time: 13:00
== END 2018-08-09 13:55 | disposition home or self-care (01) | DRG 194 ==
LOC: C.ER 11:47 → C.6T 14:37 → OBSVTOIN 08-05 12:35
PROVIDERS: ADMIT Family Medicine; ATTEND Family Medicine
DX: I11.0 Hypertensive heart disease with heart failure (principal); I42.9 Cardiomyopathy, unspecified; I51.3 Intracardiac thrombosis, not elsewhere classified; J44.9 Chronic obstructive pulmonary disease, unspecified; F17.200 Nicotine dependence, unspecified, uncomplicated; E78.5 Hyperlipidemia, unspecified; E66.01 Morbid (severe) obesity due to excess calories; I50.21 Acute systolic (congestive) heart failure; Z68.34 Body mass index [BMI] 34.0-34.9, adult

== ENCOUNTER 2018-09-02 21:45 | Inpatient (IN) | payer MEDICAID ==
[2018-09-02 22:26] LABS: BASO # 0.1 K/uL (0.0-0.2); BASO % 1.2 % (0.0-2.0); EOS # 0.1 K/uL (0.0-0.7); EOS % 1.7 % (0.0-4.0); HEMOGLOBIN 14.3 g/dL (12.0-18.0); LYMPH # 3.3 K/uL (1.0-4.3); MEAN CELL VOLUME 94.2 fL (80.0-94.0); MEAN CORPUSCULAR HEMOGLOBIN 32.7 pg (27.0-31.0); MEAN CORPUSCULAR HGB CONC 34.7 g/dL (33.0-37.0); MEAN PLATELET VOLUME 7.2 fL (7.2-11.7); MONO # 0.9 K/uL (0.0-0.8); MONO % 11.6 % (0.0-10.0); NEUT # 3.3 K/uL (1.8-7.0); NEUT % 42.5 % (50.0-75.0); NRBC % 0.2 % (0.0-2.0); RBC 4.37 Mil/uL (4.40-5.90); RED CELL DISTRIBUTION WIDTH 13.3 % (11.5-14.5); WHITE BLOOD COUNT 7.7 K/uL (4.8-10.8)
[2018-09-02 22:34] LABS: INR 1.5; PROTHROMBIN TIME 16.4 SECONDS (9.7-12.2)
[2018-09-02 22:40] LABS: ALBUMIN 4.6 g/dL (3.5-5.0); ALT/SGPT 51 U/L (21-72); AST/SGOT 57 U/L (17-59); BLOOD UREA NITROGEN 10 mg/dL (9-20); CALCIUM 9.4 mg/dl (8.6-10.4); GFR NON-AFRICAN AMERICAN > 60
[2018-09-02 22:50] LABS: B-TYPE NATRIURETIC PEPTIDE 270 pg/mL (0-450)
--- NOTE | 2018-09-02 23:17 | C.PDOC ---
History Of Present Illness 42 year old male presents with bright red blood per rectum for the past 3 days. No Hx of hemorrhoids. Patient on Coumadin for PE/DVT of unknown etiology. Patient has poor insight into his CHF related to dilated cardiomyopathy, related to ETOH abuse. Records reviewed, patient with severe dilated cardiomyopathy with severe systolic dysfunction. Drinking liberal fluids but takes his lasix in the morning. Hx of ETOH abuse, still drinking but claims less than usual. Time Seen by Provider: 09/02/18 22:01 Chief Complaint (Nursing): GI Problem History Per: Patient History/Exam Limitations: no limitations Onset/Duration Of Symptoms: Days (3) Current Symptoms Are (Timing): Still Present Recent travel outside of the [place]: No Past Medical History Reviewed: Historical Data, Nursing Documentation, Vital Signs Vital Signs: Last Vital Signs Temp 97.6 F 09/02/18 21:51 Pulse 122 H 09/02/18 21:51 Resp 20 09/02/18 21:51 BP 124/91 H 09/02/18 21:51 Pulse Ox 100 09/02/18 21:51 - Medical History PMH: Asthma, CHF, COPD, HTN Denies: Chronic Kidney Disease Family History: States: Unknown Family Hx - Social History Hx Alcohol Use: Yes Hx Substance Use: No - Immunization History Hx Tetanus Toxoid Vaccination: No Hx Influenza Vaccination: Yes Hx Pneumococcal Vaccination: No Review Of Systems Constitutional: Negative for: Fever, Chills Cardiovascular: Negative for: Chest Pain, Palpitations Respiratory: Positive for: Other (Severe sleep apnea with severe snoring and apnea as per at bedside, has not been evaluated or treated for sleep apnea). Negative for: Cough, Shortness of Breath Gastrointestinal: Positive for: Other (Rectal bleeding). Negative for: Nausea, Vomiting, Abdominal Pain Neurological: Negative for: Weakness, Numbness Physical Exam - Physical Exam Appears: Non-toxic, Other (Morbidly obese) Skin: Normal Color, Warm Head: Atraumatic, Normacephalic Eye(s): bilateral: Normal Inspection Oral Mucosa: Moist Neck: Supple Chest: Symmetrical, No Tenderness Cardiovascular: Rhythm Regular, JVD Respiratory: Rales (Mild), No Rhonchi, No Wheezing Gastrointestinal/Abdominal: Soft, No Tenderness Rectal: Other (Soft bleeding internal hemorrhoid, bright red blood per rectum) Extremity: Other (Lower extremity 2/4 pitting edema) Neurological/Psych: Oriented x3, Normal Speech ED Course And Treatment - Laboratory Results Result Diagrams: 09/02/18 10:10 09/02/18 10:10 Lab Results: PT 16.4 SECONDS (9.7-12.2) H 09/02/18 10:10 INR 1.5 09/02/18 10:10 APTT 36 SECONDS (21-34) H 09/02/18 10:10 Troponin I < 0.0120 ng/mL (0.00-0.120) 09/02/18 10:10 NT-Pro-B Natriuret Pep 270 pg/mL (0-450) 09/02/18 10:10 Total Bilirubin 0.5 mg/dL (0.2-1.3) 09/02/18 10:10 AST 57 U/L (17-59) 09/02/18 10:10 ALT 51 U/L (21-72) 09/02/18 10:10 Alkaline Phosphatase 71 U/L (38-126) 09/02/18 10:10 Total Protein 9.1 g/dL (6.3-8.3) H 09/02/18 10:10 Albumin 4.6 g/dL (3.5-5.0) 09/02/18 10:10 Globulin 4.5 gm/dL (2.2-3.9) H 09/02/18 10:10 Albumin/Globulin Ratio 1.0 (1.0-2.1) 09/02/18 10:10 Lab Interpretation: Abnormal (egoh 231 H, INR 1.5) O2 Sat by Pulse Oximetry: 100 Pulse Ox Interpretation: Normal - Radiology CXR: Interpreted by Oh CXR Interpretation: Yes: No Acute Disease, Heart Size, Other (+ mild CHF) Progress Note: no further BRBPR. comfortable Reevaluation Time: 23:15 Reassessment Condition: Improved - Physician Consult Information Outcome Of Conversation: [id number]: d/w Dr. Ermelinda Mcgrath, Medicine Mobile Therapist- ok to Med/Surg Obs Medical Decision Making Medical Decision Making: BRBPR ? internal hemorroids, felt on exam exacerbated by Coumadin therapy INR 1.5 defer reversing now CHF: poor insight in to fluid balance lasix given Alcohol abuse persistent, ETOH 231 consider CIWA protocol DALLIN: severe, by hx expected by body habitus consider Sleep study Disposition Doctor Will See Patient In The: Hospital Counseled Patient/Family Regarding: Studies Performed, Diagnosis - Disposition Disposition: HOSPITALIZED Disposition Time: 23:17 Condition: GOOD - Clinical Impression Clinical Impression: Chronic CHF, Alcohol abuse, Bright red blood per rectum - Scribe Statement The provider has reviewed the documentation as recorded by the Lelandibleonel Escalera All medical record entries made by the Lelandibleonel were at my direction and personally dictated by me. I have reviewed the chart and agree that the record accurately reflects my personal performance of the history, physical exam, medical decision making, and the department course for this patient. I have also personally directed, reviewed, and agree with the discharge instructions and disposition.
[2018-09-02 23:51] LABS: SQUAMOUS EPITHIAL < 1 /hpf (0-5); URINE BILIRUBIN NEGATIVE (NEGATIVE); URINE BLOOD NEGATIVE (NEGATIVE); URINE CLARITY Clear (Clear); URINE COLOR Straw (YELLOW); URINE GLUCOSE (UA) NORMAL (Normal); URINE LEUKOCYTE ESTERASE NEG Leu/uL (Negative); URINE PROTEIN NEGATIVE (NEGATIVE); URINE UROBILINOGEN NORMAL mg/dL (0.2-1.0)
[2018-09-03 10:54] LABS: BASO % 0.6 % (0.0-2.0); EOS # 0.1 K/uL (0.0-0.7); EOS % 1.6 % (0.0-4.0); HEMOGLOBIN 13.7 g/dL (12.0-18.0); LYMPH # 2.1 K/uL (1.0-4.3); LYMPH % 34.3 % (20.0-40.0); MEAN CELL VOLUME 95.1 fL (80.0-94.0); MEAN CORPUSCULAR HEMOGLOBIN 32.2 pg (27.0-31.0); MEAN CORPUSCULAR HGB CONC 33.9 g/dL (33.0-37.0); MEAN PLATELET VOLUME 7.3 fL (7.2-11.7); MONO # 0.5 K/uL (0.0-0.8); MONO % 7.9 % (0.0-10.0); NEUT # 3.4 K/uL (1.8-7.0); NEUT % 55.6 % (50.0-75.0); NRBC % 0.1 % (0.0-2.0); RBC 4.23 Mil/uL (4.40-5.90); RED CELL DISTRIBUTION WIDTH 13.7 % (11.5-14.5); WHITE BLOOD COUNT 6.2 K/uL (4.8-10.8)
--- NOTE | 2018-09-03 11:06 | CP.PCM.HP ---
History of Present Illness - History of Present Illness History of Present Illness: pt came in for rectal bleeding for 3 days was on asp and coumadine doesnot know the reason has alcohol yesteday deny any tremors hx of chf Present on Admission - Present on Admission Any Indicators Present on Admission: No Review of Systems - Review of Systems Systems not reviewed;Unavailable: Acuity of Condition - Constitutional Constitutional: Fatigue - EENT Eyes: As Per HPI Ears: As Per HPI Nose/Mouth/Throat: As Per HPI - Cardiovascular Cardiovascular: Dyspnea, Dyspnea on Exertion - Respiratory Respiratory: Dyspnea on Exertion - Genitourinary Genitourinary: As Per HPI - Reproductive: Male Reproductive:Male: As Per HPI - Musculoskeletal Musculoskeletal: As Per HPI - Neurological Neurological: As Per HPI - Psychiatric Psychiatric: As Per HPI - Hematologic/Lymphatic Hematologic: As Per HPI Past Patient History - Infectious Disease Hx of Infectious Diseases: None - Past Medical History & Family History Past Medical History?: Yes - Past Social History Smoking Status: Current Some Days Smoker - CARDIAC Hx Congestive Heart Failure: Yes Hx Hypertension: Yes - PULMONARY Hx Asthma: Yes Hx Chronic Obstructive Pulmonary Disease (COPD): Yes - NEUROLOGICAL Hx Neurological Disorder: No - HEENT Hx HEENT Problems: No - RENAL Hx Chronic Kidney Disease: No - ENDOCRINE/METABOLIC Hx Endocrine Disorders: No - HEMATOLOGICAL/ONCOLOGICAL Hx Blood Disorders: No - INTEGUMENTARY Hx Dermatological Problems: No - MUSCULOSKELETAL/RHEUMATOLOGICAL Hx Musculoskeletal Disorders: No - GASTROINTESTINAL Hx Gastrointestinal Disorders: No - GENITOURINARY/GYNECOLOGICAL Hx Genitourinary Disorders: No - PSYCHIATRIC Hx Substance Use: No - SURGICAL HISTORY Hx Surgeries: Yes Hx Cardiac Catheterization: Yes - ANESTHESIA Hx Anesthesia: Yes Hx Anesthesia Reactions: No Meds Allergies/Adverse Reactions: Allergies Allergy/AdvReac Type Severity Reaction Status Date / Time No Known Allergies Allergy Verified 09/02/18 21:54 Physical Exam - Constitutional Appears: Non-toxic - Head Exam Head Exam: ATRAUMATIC - Eye Exam Eye Exam: Normal appearance Pupil Exam: NORMAL ACCOMODATION - ENT Exam ENT Exam: Normal Exam - Respiratory Exam Respiratory Exam: Clear to Auscultation Bilateral - Cardiovascular Exam Cardiovascular Exam: REGULAR RHYTHM - GI/Abdominal Exam GI & Abdominal Exam: Normal Bowel Sounds - Rectal Exam Rectal Exam: NORMAL INSPECTION Additional comments: fresh red blood outside - Exam Exam: NORMAL INSPECTION - Extremities Exam Extremities exam: Positive for: normal inspection - Back Exam Back exam: NORMAL INSPECTION - Psychiatric Exam Psychiatric exam: Normal Affect - Skin Skin Exam: Normal Color Results - Vital Signs Recent Vital Signs: Last Vital Signs Temp 97.4 F L 09/03/18 07:21 Pulse 87 09/03/18 08:26 Resp 18 09/03/18 08:26 BP 118/84 09/03/18 08:26 Pulse Ox 97 09/03/18 08:26 - Labs Result Diagrams: 09/03/18 10:50 09/02/18 10:10 Labs: Laboratory Results - last 24 hr 09/02/18 09/02/18 09/02/18 10:10 10:10 10:10 WBC 7.7 RBC 4.37 L Hgb 14.3 Hct 41.2 MCV 94.2 H D MCH 32.7 H MCHC 34.7 RDW 13.3 Plt Count 391 MPV 7.2 Neut % (Auto) 42.5 L Lymph % (Auto) 43.0 H [place] % (Auto) 11.6 H Eos % (Auto) 1.7 Baso % (Auto) 1.2 Neut # (Auto) 3.3 Lymph # (Auto) 3.3 [place] # (Auto) 0.9 H Eos # (Auto) 0.1 Baso # (Auto) 0.1 PT 16.4 H INR 1.5 APTT 36 H Sodium Potassium Chloride Carbon Dioxide Anion Gap BUN Creatinine Est GFR ( Amer) Est GFR (Non-Af Amer) Random Glucose Calcium Total Bilirubin AST ALT Alkaline Phosphatase Troponin I NT-Pro-B Natriuret Pep Total Protein Albumin Globulin Albumin/Globulin Ratio Urine Color Urine Clarity Urine pH Ur Specific [place] Urine Protein Urine Glucose (UA) Urine Ketones Urine Blood Urine Nitrate Urine Bilirubin Urine Urobilinogen Ur Leukocyte Esterase Urine WBC (Auto) Urine RBC (Auto) Ur Squamous Epith Cells Stool Occult Blood Positive H Alcohol, Quantitative 09/02/18 09/02/18 09/03/18 10:10 23:44 10:50 WBC 6.2 RBC 4.23 L Hgb 13.7 Hct 40.3 MCV 95.1 H MCH 32.2 H MCHC 33.9 RDW 13.7 Plt Count 355 MPV 7.3 Neut % (Auto) 55.6 Lymph % (Auto) 34.3 [place] % (Auto) 7.9 Eos % (Auto) 1.6 Baso % (Auto) 0.6 Neut # (Auto) 3.4 Lymph # (Auto) 2.1 [place] # (Auto) 0.5 Eos # (Auto) 0.1 Baso # (Auto) 0.0 PT INR APTT Sodium 140 Potassium 4.1 Chloride 107 Carbon Dioxide 21 L Anion Gap 15 BUN 10 Creatinine 0.7 L Est GFR ( Amer) > 60 Est GFR (Non-Af Amer) > 60 Random Glucose 151 H Calcium 9.4 Total Bilirubin 0.5 AST 57 ALT 51 Alkaline Phosphatase 71 Troponin I < 0.0120 NT-Pro-B Natriuret Pep 270 Total Protein 9.1 H Albumin 4.6 Globulin 4.5 H Albumin/Globulin Ratio 1.0 Urine Color Straw Urine Clarity Clear Urine pH 5.0 Ur Specific [place] 1.005 Urine Protein Negative Urine Glucose (UA) Normal Urine Ketones Negative Urine Blood Negative Urine Nitrate Negative Urine Bilirubin Negative Urine Urobilinogen Normal Ur Leukocyte Esterase Neg Urine WBC (Auto) 2 Urine RBC (Auto) < 1 Ur Squamous Epith Cells < 1 Stool Occult Blood Alcohol, Quantitative 231 H Assessment & Plan - Assessment and Plan (Free Text) Assessment: ac rectal blood alc ingestion chf Plan: as ordered - Date & Time Date: 09/03/18 Time: 11:09
[2018-09-03 11:14] LABS: ALB/GLOB RATIO 1.1 (1.0-2.1); ALBUMIN 4.1 g/dL (3.5-5.0); ALT/SGPT 52 U/L (21-72); AST/SGOT 52 U/L (17-59); BLOOD UREA NITROGEN 12 mg/dL (9-20); CALCIUM 9.1 mg/dl (8.6-10.4); GFR NON-AFRICAN AMERICAN > 60
[2018-09-03 11:23] LABS: B-TYPE NATRIURETIC PEPTIDE 121 pg/mL (0-450); CK-MB 1.56 ng/mL (0.0-3.38)
--- NOTE | 2018-09-03 12:41 | RAD ---
Date of service: 09/02/2018 PROCEDURE: CHEST RADIOGRAPH, 1 VIEW HISTORY: SOB COMPARISON: Comparison is made with 08/05/2018 FINDINGS: LUNGS: Clear. PLEURA: No pneumothorax or pleural fluid seen. CARDIOVASCULAR: No aortic atherosclerotic calcification present. Normal. OSSEOUS STRUCTURES: No significant abnormalities. VISUALIZED UPPER ABDOMEN: Normal. OTHER FINDINGS: None. IMPRESSION: No active disease.
[2018-09-03 19:47] LABS: BARBITURATES, UR NEGATIVE (NEGATIVE); BENZODIAZEPINES, UR NEGATIVE (NEGATIVE); OPIATES, UR NEGATIVE (NEGATIVE); PHENCYCLIDINE, UR NEGATIVE (NEGATIVE)
--- NOTE | 2018-09-04 03:27 | CON ---
DATE: 09/03/2018 CARDIOLOGY CONSULTATION REASON FOR CONSULTATION: Cardiomyopathy. HISTORY OF PRESENT ILLNESS: The patient is a 42-year-old male who has a history of nonischemic cardiomyopathy, is being followed by the head operator at [facility] where he underwent his cardiac catheterization. I recalled few months ago and evaluated the patient. We received a copy of his cardiac catheterization which confirmed the nonischemic etiology of the patient's cardiomyopathy. The patient presented because of bright blood per rectum. The patient was also alcohol intoxicated on admission. The patient denies any chest pain or shortness of breath at this time. 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 MEDICATIONS: Aldactone 25 mg once a day. The patient's home medications include aspirin, Coreg, Cozaar, Coumadin, albuterol and Lasix, but it is not clear if the patient was compliant with his medications. REVIEW OF SYSTEMS: No hematemesis. No fever or chills. No productive cough. PHYSICAL EXAMINATION: GENERAL: The patient is a middle-aged male who does not appear to be in acute distress. VITAL SIGNS: Blood pressure 132/95, heart rate 98, temperature 97.5, respirations 18. HEENT: Normocephalic. CHEST: Clear. HEART: S1 and S2, regular. ABDOMEN: Soft. EXTREMITIES: 1+ pitting edema. LABORATORY DATA: Today's hemoglobin, hematocrit, white count, and platelet count are within normal limits. Today's SMA-7 is within normal limits except for glucose of 178. Two sets of troponins are negative. INR is 1.5 on admission. Alcohol level is 231. Chest x-ray revealed cardiomegaly, no congestive changes. chest x-ray. EKG revealed sinus rhythm at the rate of 100, considered lateral ischemic T-wave changes and prolonged PT interval. Echocardiographic study performed in late 07/2018 revealed [id number] left ventricular systolic dysfunction, dilated left atrium and left ventricle, severe tricuspid insufficiency, ejection fraction was estimated at 30%. ASSESSMENT: 1. Cardiomyopathy. 2. Alcohol intoxication. 3. Rectal bleeding. RECOMMENDATIONS: Discontinue Coumadin. Continue Aldactone 25 mg once a day. Start Cozaar 25 mg once a day and Coreg 3.125 mg twice a day. Consider Gastroenterology evaluation. Obtain urine for drug screen. Boubacar Gupta MD
[2018-09-04 08:37] LABS: BASO # 0.1 K/uL (0.0-0.2); EOS # 0.1 K/uL (0.0-0.7); EOS % 2.1 % (0.0-4.0); HEMOGLOBIN 12.7 g/dL (12.0-18.0); LYMPH # 2.2 K/uL (1.0-4.3); LYMPH % 37.8 % (20.0-40.0); MEAN CELL VOLUME 96.2 fL (80.0-94.0); MEAN CORPUSCULAR HEMOGLOBIN 33.1 pg (27.0-31.0); MEAN CORPUSCULAR HGB CONC 34.4 g/dL (33.0-37.0); MEAN PLATELET VOLUME 7.2 fL (7.2-11.7); MONO # 0.7 K/uL (0.0-0.8); MONO % 12.7 % (0.0-10.0); NEUT # 2.7 K/uL (1.8-7.0); NEUT % 46.4 % (50.0-75.0); NRBC % 0.1 % (0.0-2.0); RBC 3.85 Mil/uL (4.40-5.90); RED CELL DISTRIBUTION WIDTH 13.6 % (11.5-14.5); WHITE BLOOD COUNT 5.7 K/uL (4.8-10.8)
[2018-09-04 08:46] VITALS: RESP 20
--- NOTE | 2018-09-04 14:13 | PCM.PSYCH ---
Initial Psychiatric Evaluation - Initial Psychiatric Evaluation Type of Admission: Voluntary Legal Status: Capacity Chief Complaint (in patient's own words): "I feel fine" History of Present Illness and Precipitating Events: PGY-[address] Bass service reason for consult: Alcohol use Patient is a 42 year old male, described himself as "- ", has two kids, lives with his family, currently unemployed, being interviewed at a job tomorrow. Patient was admitted to hospital on 08/23/2018 for rectal bleeding most likely secondary to recent anticoagulation use. Patient states he had 1 pint of vodka the same day of his admission to the hospital, that being his last drink. He admits to drinking 1 pint of vodka every other day. Patient has been drinking since he was in high school, which is an approximate of 20+ years. Patient states he does not drink any other types of beverages, but vodka. Patient admits to smoking about 3-4 cigarettes again since he was in high school. Patient denies any drug use such as cocaine, marijuana, etc. Patient denies any other psych issues. Denies homicidal or suicidal ideation. Patient denies having any withdrawal symptoms since admission. Denies tremors, fevers, nausea, vomiting, anxiety, trouble sleeping. Patient state he want to be discharged today as he has an interview with [email or web address] for possible employment and says he can no longer stay in hospital, as he needs that job. Med hx: CHF, asthma Psych hx: denies All: denies Psych Meds: none Psych fam hx: denies Current Medications: Active Medications Generic Name Dose Route Start Last Admin Trade Name Colton PRN Reason Stop Dose Admin Carvedilol 3.125 mg 09/03/18 18:00 09/04/18 10:28 Coreg PO 3.125 mg BID DONELL Administration Losartan Potassium 25 mg 09/03/18 15:30 09/04/18 10:28 Cozaar PO 25 mg DAILY DONELL Administration Thiamine HCl 100 mg 09/03/18 15:30 09/04/18 10:28 Vitamin B1 Tab PO 100 mg DAILY DONELL Administration Past Psychiatric History - Past Psychiatric History Pertinent Medical Hx (Current Medical&Sleep Prob, Allergies): Allergies Allergy/AdvReac Type Severity Reaction Status Date / Time No Known Allergies Allergy Verified 09/02/18 21:54 Albuterol HFA [Ventolin HFA 90 mcg/actuation (8 g)] 2 puff IH BID PRN #1 inhaler 08/09/18 Aspirin [Aspirin Chewable] 81 mg PO DAILY #30 chew 08/09/18 Carvedilol [Coreg] 12.5 mg PO BID #60 tab 08/09/18 Furosemide [Lasix] 40 mg PO DAILY #30 tab 08/09/18 Losartan [Cozaar] 50 mg PO DAILY #30 tab 08/09/18 Warfarin [Coumadin] 5 mg PO DAILY #30 tab 08/09/18 Review of Systems - Psychiatric Psychiatric: UNREMARKABLE. absent: Abnormal Sleep Pattern, Anxiety, Auditory Hallucinations, Change in Appetite, Depression, Difficulty Concentrating, Hallucinations, Homicidal Ideation, Memory Loss, Suicidal Ideation, Visual Hallucinations Mental Status Examination - Personal Presentation Personal Presentation: Looks stated age - Affect Affect: Broad - Motor Activity Motor Activity: Calm - Reliability in Providing Information Reliability in Providing Information: Good - Speech Speech: Organized - Mood Mood: Neutral - Formal Thought Process Formal Thought Process: No Impairment - Cognitive Functions Orientation: Person, Place, Situation, Time Sensorium: Alert Attention/Concentration: Attentive Abstract Thinking: [place] Estimate of Intelligence: Average Judgement: Intact, as evidence by: Good judgement Memory: Remote intact, as evidenced by: Abilit to recall sig. life events - Strength & Assets Inventory Strength & Assets Inventory: Cooperative DSM 5 DX - DSM 5 DSM 5 Diagnosis: Alcohol use disorder - moderate Tobacco use disorder - moderate - Recommended/Plan of Treatment Treatment Recommendations and Plan of Treatment: Medication if needed Nicotine patch if needed Support and psychoeducation after care plan discussed Plan d/w Dr Kali Galindo, PGY-1
--- NOTE | 2018-09-04 17:55 | CP.PCM.PN ---
Subjective - Date & Time of Evaluation Date of Evaluation: 09/04/18 Time of Evaluation: 17:53 - Subjective Subjective: pt feels beter no rectal bleeding hgb droped igm Objective - Vital Signs/Intake and Output Vital Signs (last 24 hours): Temp Pulse Resp BP Pulse Ox 97.8 F 86 20 136/88 97 09/04/18 15:00 09/04/18 16:07 09/04/18 15:00 09/04/18 15:00 09/04/18 15:00 Intake and Output: 09/04/18 09/04/18 06:59 18:59 Intake Total 500 480 Balance 500 480 - Medications Medications: Current Medications Carvedilol (Coreg) 3.125 mg PO BID [facility] Last Admin: 09/04/18 17:10 Dose: 3.125 mg Losartan Potassium (Cozaar) 25 mg PO DAILY [facility] Last Admin: 09/04/18 10:28 Dose: 25 mg Thiamine HCl (Vitamin B1 Tab) 100 mg PO DAILY [facility] Last Admin: 09/04/18 10:28 Dose: 100 mg - Labs Labs: 09/04/18 08:25 09/03/18 10:50 PT 16.4 SECONDS (9.7-12.2) H 09/02/18 10:10 INR 1.5 09/02/18 10:10 APTT 36 SECONDS (21-34) H 09/02/18 10:10 - Constitutional Appears: Non-toxic - Head Exam Head Exam: ATRAUMATIC - Eye Exam Eye Exam: Normal appearance Pupil Exam: NORMAL ACCOMODATION - ENT Exam ENT Exam: Mucous Membranes Moist - Neck Exam Neck Exam: Full ROM - Respiratory Exam Respiratory Exam: Clear to Ausculation Bilateral - Cardiovascular Exam Cardiovascular Exam: REGULAR RHYTHM - GI/Abdominal Exam GI & Abdominal Exam: Normal Bowel Sounds - Rectal Exam Rectal Exam: NORMAL INSPECTION - Extremities Exam Extremities Exam: Full ROM - Psychiatric Exam Psychiatric exam: Normal Mood - Skin Skin Exam: Dry, Normal Color Assessment and Plan - Assessment and Plan (Free Text) Assessment: rectal bleeding s/p alc ingesion improving Plan: will repeat hgb in am if stable will plan for discharge
--- NOTE | 2018-09-04 22:19 | PN ---
DATE: 09/04/2018 SUBJECTIVE: The patient is still experiencing rectal bleeding; however, he wants to go home today. PHYSICAL EXAMINATION: VITAL SIGNS: Blood pressure 136/88, heart rate 83, temperature 97.8, respiration 20. HEENT: Normocephalic. CHEST: Bilateral rhonchi. HEART: S1 and S2, regular. EXTREMITIES: 1+ pitting edema. LABORATORY DATA: Today's hemoglobin, hematocrit, white count, and platelet count are within normal limits. However, there is a drop of nearly 2 g of hemoglobin since admission. ASSESSMENT: 1. Dilated cardiomyopathy. 2. Alcohol abuse, status post alcohol intoxication. 3. Rectal bleeding. RECOMMENDATIONS: Continue Coreg 3.125 mg twice a day, Cozaar 25 mg once a day, thiamine 100 mg daily, anticoagulation is contraindicated so far given the rectal bleeding as well as the concomitant EtOH abuse. The patient's level was 231 on admission. Boubacar Gupta MD
[2018-09-05 08:18] LABS: BASO # 0.1 K/uL (0.0-0.2); BASO % 0.9 % (0.0-2.0); EOS # 0.2 K/uL (0.0-0.7); EOS % 2.8 % (0.0-4.0); LYMPH # 2.1 K/uL (1.0-4.3); LYMPH % 35.9 % (20.0-40.0); MEAN CELL VOLUME 95.8 fL (80.0-94.0); MEAN CORPUSCULAR HEMOGLOBIN 33.2 pg (27.0-31.0); MEAN CORPUSCULAR HGB CONC 34.7 g/dL (33.0-37.0); MEAN PLATELET VOLUME 7.1 fL (7.2-11.7); MONO # 0.7 K/uL (0.0-0.8); MONO % 11.4 % (0.0-10.0); NEUT # 2.9 K/uL (1.8-7.0); NRBC % 0.1 % (0.0-2.0); RBC 3.92 Mil/uL (4.40-5.90); RED CELL DISTRIBUTION WIDTH 13.5 % (11.5-14.5); WHITE BLOOD COUNT 5.9 K/uL (4.8-10.8)
[2018-09-05 08:30] LABS: ALB/GLOB RATIO 1.1 (1.0-2.1); ALBUMIN 4.2 g/dL (3.5-5.0); ALT/SGPT 35 U/L (21-72); AST/SGOT 43 U/L (17-59); BLOOD UREA NITROGEN 11 mg/dL (9-20); GFR NON-AFRICAN AMERICAN > 60
[2018-09-05 08:38] VITALS: BP 130/90; TEMP 97.8; O2SAT 97
--- NOTE | 2018-09-05 10:55 | CP.PCM.PN ---
Subjective - Date & Time of Evaluation Date of Evaluation: 09/05/18 Time of Evaluation: 10:52 - Subjective Subjective: pt feels good no new rectal bleeding hgb stable will disch Objective - Vital Signs/Intake and Output Vital Signs (last 24 hours): Temp Pulse Resp BP Pulse Ox 97.8 F 82 20 130/90 97 09/05/18 08:37 09/05/18 08:37 09/05/18 08:37 09/05/18 08:37 09/05/18 08:37 Intake and Output: 09/05/18 09/05/18 06:59 18:59 Intake Total 1300 Balance 1300 - Medications Medications: Current Medications Carvedilol (Coreg) 3.125 mg PO BID [facility] Last Admin: 09/05/18 10:37 Dose: 3.125 mg Losartan Potassium (Cozaar) 25 mg PO DAILY [facility] Last Admin: 09/05/18 10:37 Dose: 25 mg Thiamine HCl (Vitamin B1 Tab) 100 mg PO DAILY [facility] Last Admin: 09/05/18 10:37 Dose: 100 mg - Labs Labs: 09/05/18 07:50 09/05/18 07:50 PT 16.4 SECONDS (9.7-12.2) H 09/02/18 10:10 INR 1.5 09/02/18 10:10 APTT 36 SECONDS (21-34) H 09/02/18 10:10 - Constitutional Appears: Non-toxic - Head Exam Head Exam: ATRAUMATIC - Eye Exam Eye Exam: Normal appearance Pupil Exam: NORMAL ACCOMODATION - ENT Exam ENT Exam: Mucous Membranes Moist - Neck Exam Neck Exam: Full ROM - Respiratory Exam Respiratory Exam: Clear to Ausculation Bilateral - Cardiovascular Exam Cardiovascular Exam: REGULAR RHYTHM - GI/Abdominal Exam GI & Abdominal Exam: Normal Bowel Sounds - Rectal Exam Rectal Exam: NORMAL INSPECTION - Extremities Exam Extremities Exam: Normal Inspection - Back Exam Back Exam: NORMAL INSPECTION - Psychiatric Exam Psychiatric exam: Normal Affect, Normal Mood - Skin Skin Exam: Intact, Normal Color Assessment and Plan - Assessment and Plan (Free Text) Assessment: s/p rectal bleeding s/p alc ingesion Plan: discharde home
[2018-09-05 11:38] VITALS: PULSE 86
--- NOTE | 2018-09-05 12:17 | CP.PCM.PN ---
Subjective - Date & Time of Evaluation Date of Evaluation: 09/05/18 Time of Evaluation: 12:16 - Subjective Subjective: PATIENT SEEN AND EXAMINED AT THE BEDSIDE Objective - Vital Signs/Intake and Output Vital Signs (last 24 hours): Temp Pulse Resp BP Pulse Ox 97.8 F 86 20 130/90 97 09/05/18 08:37 09/05/18 11:30 09/05/18 08:37 09/05/18 08:37 09/05/18 08:37 Intake and Output: 09/05/18 09/05/18 06:59 18:59 Intake Total 1300 Balance 1300 - Medications Medications: Current Medications Carvedilol (Coreg) 3.125 mg PO BID [facility] Last Admin: 09/05/18 10:37 Dose: 3.125 mg Losartan Potassium (Cozaar) 25 mg PO DAILY [facility] Last Admin: 09/05/18 10:37 Dose: 25 mg Thiamine HCl (Vitamin B1 Tab) 100 mg PO DAILY [facility] Last Admin: 09/05/18 10:37 Dose: 100 mg - Labs Labs: 09/05/18 07:50 09/05/18 07:50 PT 16.4 SECONDS (9.7-12.2) H 09/02/18 10:10 INR 1.5 09/02/18 10:10 APTT 36 SECONDS (21-34) H 09/02/18 10:10 Assessment and Plan - Assessment and Plan (Free Text) Assessment: FOLLOW UP WITH DR DYER IN HER OFFICE ------CALL FOR APPOINTMENT 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
--- NOTE | 2018-09-06 15:53 | IP.NPCORE ---
Heart Failure Core Measure - Heart Failure Ejection Fraction: Less Than 40 % MONO Inhibitor Prescribed: No Contraindication/Reason for not providing: ARB Beta-Silver Prescribed: Carvedilol Angiotensin II Receptor Silver Prescribed: Yes AnticoagulationTherapy for Atrial Fibrillation/Atrialflutter: No Contraindication/Reason for not providing: NO HX OF AFIB Aldosterone Antagonist Prescribed: No Contraindication/Reason for not providing: BP RUNNING LOW Hydralazine Nitrate Prescribed: No Contraindication/Reason for not providing: ON LASIX Implantable Cardioverter Defibrillator Therapy: No Contraindication/Reason for not providing: MEDICAL MANAGEMENT Cardiac Resynchronization Therapy Prescribed: No Contraindication/Reason for not providing: MEDICAL MANAGEMENT - Follow up Will be discharged to: Home Follow Up Date (must be within 7 days from discharge): 09/11/18 Follow Up Time: 10:00
== END 2018-09-05 13:12 | disposition home or self-care (01) | DRG 253 ==
LOC: C.ER 21:45 → C.9E 23:12 → OBSVTOIN 09-03 08:16 → C.5S 09-03 08:16
PROVIDERS: ADMIT Internal Medicine; ATTEND Internal Medicine
DX: K62.5 Hemorrhage of anus and rectum (principal); I11.0 Hypertensive heart disease with heart failure; I42.0 Dilated cardiomyopathy; I50.9 Heart failure, unspecified; F10.120 Alcohol abuse with intoxication, uncomplicated; Y90.7 Blood alcohol level of 200-239 mg/100 ml; F17.210 Nicotine dependence, cigarettes, uncomplicated; G47.33 Obstructive sleep apnea (adult) (pediatric); J44.9 Chronic obstructive pulmonary disease, unspecified; E66.01 Morbid (severe) obesity due to excess calories; Z68.37 Body mass index [BMI] 37.0-37.9, adult